=== PATIENT | female | born 1935 | race Caucasian/White ===

== ENCOUNTER 2023-03-10 15:17 | Emergency (ER) | payer MEDICARE, SELFPAY ==
[2023-03-10 15:21] VITALS: BP 112/57
--- NOTE | 2023-03-10 16:47 | ED.GENMED ---
Addendum entered and electronically signed by Jason Luna PA-C 03/13/23 09:22:
Patient's urine culture grew 50,000 CFU of Klebsiella and Streptococcus species. She was not discharged on any antibiotics. Based off chart review it does appear patient symptoms seem to be more related to musculoskeletal etiology however when I
contacted patient she still noted she was having discomfort and did admit to some urinary frequency/urgency. She did have a slight leukocytosis here. Based off her urinalysis I do suspect contamination given greater than 30 squamous cells and few
bacteria, but given her symptoms will trial Augmentin based off her sensitivity panel. Advised to follow-up with primary care physician.
Addendum entered and electronically signed by Gera Almaguer PA-C 03/12/23 07:41:
Not on abx; UCx with polymicrobial growth, await sensitivity
Original Note:
History of Present Illness
General
Chief Complaint: Back Pain
Source: patient
Exam Limitations: none
Time Seen by Provider: 03/10/23 16:07
Travel History
Have you had any contact with someone who has COVID-19?: No
Do you have any symptoms of coronavirus? Fever > 100 degrees, chills, cough, shortness of breath, sore throat, loss of taste or smell, muscle aches, or headache?: No
History of Present Illness
History of Present Illness:
87-year-old female lives by herself at home in an apartment presents complaining of low back pain rating down the right leg. This has been getting worse over the past 2 to 3 weeks. No associated fever. No urinary symptoms. Pain is worse with
standing and motion. She has been using ibuprofen.
Past History
Past History
ED Past Medical History: GERD and HTN
ED Past Surgical History: Other (esophageal)
Social History
Tobacco: Non-smoker
Alcohol: Occasional
Drug: None
Personal:
Living: alone
Employment: Retired
Family History
Family History: Other (n/c)
Phy Exam
Physical Exam
Physical Exam:
General: Well-appearing female no acute respiratory distress
HEENT: Normocephalic atraumatic
Heart: Regular rate and rhythm no murmurs
Lungs: Clear to auscultation bilaterally no wheezing
Musculoskeletal exam: Mild diffuse tenderness about the lumbar spine and right leg
Vascular: 2+ dorsalis pedis pulse right foot
Neurologic: Good station bilateral lower extremities bilateral patellar reflexes 2+
Course
Orders/Labs/Results
Orders:
Orders
03/10/23 15:51
CR Hip - RT w/wo Pel 2-3 Vw* Urgent
Comment:
Reason For Exam: pain, possible injury getting out of bath.
Include a pelvis x-ray?: Yes
CR Lumbar Spine Comp Min 4 Vw* Urgent
Comment:
Reason For Exam: pain, possible injury getting in and out of bath
03/10/23 16:27
Case Management Consult ONCE
Case Management Consult: VN/Home Care
Lidocaine [Lidocaine 4% Patch] 1 patch TOPICAL NOW STA
Prednisone [Deltasone] 50 mg PO NOW STA
03/10/23 16:32
Tramadol HCl [Ultram] 50 mg PO NOW STA
03/10/23 17:15
Basic Metabolic Panel Urgent
Complete Blood Count/With Diff Urgent
Urinalysis Reflex To Culture Urgent
Date Specimen was Collected: 03/10/23
Time Specimen was Collected: 17:01
Urine Microscopic Reflex Cult Urgent
Urine Culture Urgent
SUDHA Source: U
Specimen Description:
Date Specimen was Collected: 03/10/23
Time Specimen was Collected: 17:01
Abnormal Lab Results
03/10/23
17:15
WBC 14.4 H 10^3/uL
(4.8-10.8)
RBC 4.12 L 10^6/uL
(4.20-5.40)
Hct 36.4 L %
(37.0-47.0)
RDW 14.6 H %
(11.5-14.5)
Plt Count 407 H 10^3/uL
(130-400)
MPV 11.5 H fL
(7.4-10.4)
Abs Immat Gran (auto) 0.1 H 10^3/uL
(0-0.05)
Absolute Neuts (auto) 10.1 H 10^3/uL
(1.4-6.5)
Absolute Monos (auto) 1.1 H 10^3/uL
(0.1-0.6)
Immature Gran % 0.7 H %
(0-0.5)
Lymphocytes % 19.3 L %
(20.5-51.1)
Carbon Dioxide 21 L mmol/L
(22-30)
BUN 28 H mg/dl
(7-17)
Creatinine 1.1 H mg/dL
(0.6-1.0)
Glucose 122 H mg/dl
(70-99)
Urine Bilirubin 1+ A
(Negative)
Leukocyte Esterase Rfl 1+ A
(Negative)
Urine WBC (Reflex) 16-20 A /HPF
(0-5)
Urine Bacteria (Reflex) Few A
(Negative)
03/10/23 17:15
03/10/23 17:15
Vital Signs
Initial and Last Documented VS:
Initial Vital Signs
Temp Pulse Resp BP Pulse Ox
98.2 F 78 18 112/57 95
03/10/23 15:21 03/10/23 15:21 03/10/23 15:21 03/10/23 15:21 03/10/23 15:21
Last Documented Vital Signs
Temp Pulse Resp BP Pulse Ox
98.2 F 78 18 112/57 95
03/10/23 15:21 03/10/23 15:21 03/10/23 15:21 03/10/23 15:21 03/10/23 15:21
MDM/Problems Addressed
Differential Diagnosis Includes:
Low back pain with right leg pain. Likely radiculopathy. Patient does live by herself and is having trouble functioning. Case management consulted for visiting nurses and home health. I spoke with the patient's daughter on the telephone who was
concerned about potential UTI secondary to incontinence and increased urination recently. Urinalysis obtained will check labs. X-rays of the lumbar spine and right which show degenerative changes throughout but no other acute finding. Patient
strongly expresses her desire to be discharged back to her apartment
*Critical Care Note
Total Time (30-74mins, 75-104mins- exclusive of procedures): Not Applicable
ED Attending Note
-
Portions of this chart may have been created with voice recognition software.� Occasional wrong word or��sound alike� substitutions may have occurred due to the inherent limitations of voice recognition software.
Discharge Plan
Departure
Patient Disposition: Home (Routine Discharge)
Date of Disposition: 03/10/23
Time of Disposition: 18:06
Patient with high blood pressure during this ER visit?: No
Discharge Problem:
Acute lumbar radiculopathy
Instructions: Radiculopathy (DC)
Prescriptions:
New
lidocaine [Lidoderm] 5 % adhesive patch,medicated
1 patch topical DAILY Qty: 15 0RF
diazepam [Valium] 5 mg tablet
5 mg PO Q8H PRN (Reason: muscle spasm) Qty: 10 0RF
prednisone 20 mg tablet
40 mg PO DAILY 5 Days Qty: 10 0RF
No Action
losartan 50 MG tablet
100 mg PO DAILY
metformin 500 MG tablet
500 mg PO TID@0800,1200,1800
Patient Comments:
11/26/20 - pt stated she now takes tid
atorvastatin 20 MG tablet
20 mg PO DAILY
loperamide 2 MG capsule
2 mg PO Q4HPRN PRN (Reason: diarrhea)
glipizide 5 MG tablet
5 mg PO DAILY
dexlansoprazole [Kapidex] 60 MG capsule,biphase delayed releas
60 mg PO DAILY
mirabegron [Myrbetriq] 25 MG tablet extended release 24 hr
50 mg PO DAILY
diazepam 2 MG tablet
2 mg PO BIDPRN PRN (Reason: anxiety) 0RF
cholestyramine-aspartame [Cholestyramine Light] 1 PACKET powder in packet
1 packet PO BID Qty: 60 0RF
Referrals:
Alejandro Aguilar, [Non-Admitting Privileges] -
Momo Jama MD [Family Provider] -
Activity Restrictions/Additional Instructions:
Take steroids as directed. Use muscle relaxer as needed for spasm. Use lidocaine patches as directed. Please follow-up with orthopedics for further evaluation
Interventions
Interventions:
*Risk Screen - Suicide Last Done: 03/10/23 15:21
*General Assessment Last Done: 03/10/23 15:21
*Neglect/Abuse Screening Last Done: 03/10/23 15:21
ED- Fall Risk Assessment Last Done: 03/10/23 17:14
ED-Musculoskeletal Assessment Last Done: 03/10/23 17:13
--- NOTE | 2023-03-10 16:53 | CM ---
CM was consulted for discharge planning. CM met with patient. She lives in a single floor apartment with elevator access. Patient is agreeable to home discharge with [facility]. Referral sent via [facility].
[2023-03-10 17:14] VITALS: BMI 31.3
[2023-03-10] MEDS: DELTASONE 50 MG PO (17:22)
[2023-03-10] MEDS: LIDOCAINE 4% PATCH 1 PATCH TOPICAL (17:22)
[2023-03-10 17:30] LABS: Urine Albumin Trace (Neg - Trace); Urine Bilirubin 1+ (Negative); Urine Character Clear (Clear); Urine Color Yellow; Urine Glucose Negative (Negative); Urine Ketone Negative (Negative); Urine Leukocyte 1+ (Negative); Urine Nitrite Negative (Negative); Urine Occult Blood Negative (Negative); Urine Specific Gravity 1.025 (<1.030); Urine Urobilinogen Negative (Neg - 1+)
[2023-03-10 17:40] LABS: Urine Bacteria Few (Negative); Urine Red Blood Cell None Seen /HPF (0-2); Urine Squamous Cell >30 /LPF (Few); Urine White Cell 16-20 /HPF (0-5)
[2023-03-10 17:43] LABS: % Basophils 0.5 % (0-2); % Eosinophils 1.2 % (0-6); % Immature Granulocytes 0.7 % (0-0.5); % Lymphocytes 19.3 % (20.5-51.1); % Monocytes 7.9 % (1.7-9.3); % Neutrophils 70.4 % (42.2-75.2); Absolute Basophils 0.1 10^3/uL (0-0.2); Absolute Eosinophils 0.2 10^3/uL (0-0.7); Absolute Immature Granulocytes 0.1 10^3/uL (0-0.05); Absolute Lymphocytes 2.8 10^3/uL (1.2-3.4); Absolute Monocytes 1.1 10^3/uL (0.1-0.6); Absolute Neutrophils 10.1 10^3/uL (1.4-6.5); Hematocrit 36.4 % (37.0-47.0); Mean Corpuscular Hgb 29.1 pg (27.0-31.0); Mean Corpuscular Volume 88.3 fL (81.0-99.0); Mean Platelet Volume 11.5 fL (7.4-10.4); Nucleated Red Blood Cells % 0 %; Platelet Count 407 10^3/uL (130-400); Red Blood Cell Count 4.12 10^6/uL (4.20-5.40); Red Cell Dist. Width 14.6 % (11.5-14.5); White Blood Cell Count 14.4 10^3/uL (4.8-10.8)
[2023-03-10 17:46] LABS: Blood Urea Nitrogen 28 mg/dl (7-17); Calcium 9.2 mg/dl (8.4-10.2); Carbon Dioxide 21 mmol/L (22-30); Chloride 107 mmol/L (98-107); Estimated Creatinine Clearance 39 ml/min; Glucose 122 mg/dl (70-99); Sodium 139 mmol/L (135-145); eGFR 48.94
[2023-03-10 18:30] VITALS: BP 110/61
[2023-03-10 18:38] LABS: Potassium 5.2 mmol/L (3.5-5.1)
[2023-03-10 18:57] VITALS: BP 110/61
[2023-03-10] MEDS: MOTRIN 400 MG PO (20:48)
[2023-03-10] MEDS: TORADOL 15 MG IM (21:33)
[2023-03-10] MEDS: FLEXERIL 10 MG PO (21:34)
== END 2023-03-10 21:44 | disposition home or self-care (01) ==
LOC: EMR 15:17
PROVIDERS: Physician Assistant; EMERGENCY PHYSICIAN Emergency Medicine; FAMILY PHYSICIAN Family Medicine
DX: M54.16 Radiculopathy, lumbar region (principal)
CPT/HCPCS: 99284; 96372; 72110; 73502; 80048; 81003; 81015; 84132; 85025; 87077; 87086; 87186

== ENCOUNTER 2023-03-31 23:53 | Inpatient (IN) | payer MEDICARE, SELFPAY ==
[2023-03-31 18:25] VITALS: BMI 32.0
[2023-03-31 18:29] VITALS: BP 99/50
[2023-03-31 18:55] LABS: % Basophils 0.6 % (0-2); % Eosinophils 1.5 % (0-6); % Immature Granulocytes 0.5 % (0-0.5); % Lymphocytes 14.1 % (20.5-51.1); % Monocytes 6.7 % (1.7-9.3); % Neutrophils 76.6 % (42.2-75.2); Absolute Basophils 0.1 10^3/uL (0-0.2); Absolute Eosinophils 0.2 10^3/uL (0-0.7); Absolute Immature Granulocytes 0.1 10^3/uL (0-0.05); Absolute Lymphocytes 1.7 10^3/uL (1.2-3.4); Absolute Monocytes 0.8 10^3/uL (0.1-0.6); Absolute Neutrophils 9.3 10^3/uL (1.4-6.5); Hematocrit 34.1 % (37.0-47.0); Mean Corp Hgb Conc. 32.3 g/dL (33.0-37.0); Mean Corpuscular Hgb 28.9 pg (27.0-31.0); Mean Corpuscular Volume 89.7 fL (81.0-99.0); Mean Platelet Volume 11.3 fL (7.4-10.4); Nucleated Red Blood Cells % 0 %; Platelet Count 333 10^3/uL (130-400); Red Cell Dist. Width 15.3 % (11.5-14.5); White Blood Cell Count 12.1 10^3/uL (4.8-10.8)
[2023-03-31 19:10] LABS: ALT (SGPT) 17 U/L (0-35); AST (SGOT) 27 U/L (14-36); Albumin 3.9 g/dl (3.5-5.0); Alkaline Phosphatase 112 U/L (38-126); Blood Urea Nitrogen 22 mg/dl (7-17); Carbon Dioxide 20 mmol/L (22-30); Chloride 105 mmol/L (98-107); Glucose 143 mg/dl (70-99); Potassium 5.4 mmol/L (3.5-5.1); Sodium 134 mmol/L (135-145); Total Bilirubin 0.4 mg/dl (0.2-1.3); Total Protein 6.1 g/dl (6.3-8.2); eGFR 54.53
[2023-03-31 21:24] VITALS: BP 108/63
[2023-03-31 21:26] VITALS: BP 108/63
[2023-03-31] MEDS: ZOFRAN ODT (ORALLY DISINTEGRATING) 4 MG PO (21:53)
[2023-03-31] MEDS: DECADRON 6 MG IV (21:53)
[2023-03-31] MEDS: NSS 1000 IV (21:54)
[2023-03-31] MEDS: TORADOL 15 MG IV (21:54)
[2023-03-31 22:30] LABS: Magnesium 1.1 mg/dl (1.6-2.3)
--- NOTE | 2023-03-31 22:41 | PHANOTE ---
Med Rec Note:
While interviewing this pt, pt admitted to this tech that she is 'unsure if she has been taking too many of my meds', 'that i've been in so much pain and reach over take them'. Pt was able to confirm some of her medications, but unsure of others.
Home med list compiled from Dr Ceja and SUSANNE as well.
[2023-03-31 22:45] VITALS: BP 95/46
[2023-03-31 23:10] LABS: Urine Albumin Trace (Neg - Trace); Urine Bilirubin 1+ (Negative); Urine Character Clear (Clear); Urine Color Yellow; Urine Glucose Negative (Negative); Urine Ketone Negative (Negative); Urine Leukocyte Trace (Negative); Urine Nitrite Negative (Negative); Urine Occult Blood Negative (Negative); Urine Specific Gravity 1.025 (<1.030); Urine Urobilinogen Negative (Neg - 1+)
[2023-03-31 23:18] LABS: Urine Squamous Cell >30 /LPF (Few)
--- NOTE | 2023-03-31 23:18 | ED.GENMED ---
History of Present Illness
General
Chief Complaint: Musculo-Skeletal Complaint
Source: patient and family
Exam Limitations: none
Time Seen by Provider: 03/31/23 20:59
Nursing documentation reviewed up to this point in time: agreed with
Travel History
Have you had any contact with someone who has COVID-19?: No
Do you have any symptoms of coronavirus? Fever > 100 degrees, chills, cough, shortness of breath, sore throat, loss of taste or smell, muscle aches, or headache?: No
History of Present Illness
History of Present Illness:
Patient presents to ED secondary to worsening right lower back pain over the past 2 months. Patient was evaluated in ED 1 month ago and was diagnosed with likely arthritis. In addition, patient was also found to have UTI, for which she was given
antibiotics. Unfortunate over the past 2 weeks, patient has had continual diarrhea with decreased appetite. In addition today, patient has had multiple vomiting episodes. Denies fever or chills. Denies abdominal pain. Denies dizziness, but
reports generalized weakness. Denies loss of sensation or weakness. Denies urinary or bowel incontinence.
Past History
Past History
ED Past Medical History: GERD and HTN
ED Past Surgical History: Other (esophageal)
Social History
Tobacco: Non-smoker
Alcohol: Occasional
Drug: None
Personal:
Living: alone
Employment: Retired
Family History
Family History: Other (n/c)
Review of Systems
Review of Systems
Allergies reviewed?: Yes
All Other Systems: ROS reviewed and negative except as documented in HPI and ROS
Constitutional: Reports no symptoms
EENT: Reports no symptoms
Respiratory: Reports no symptoms
Cardiac: Reports no symptoms
ABD/GI: Reports nausea, vomiting and diarrhea
: Reports frequency
Musculoskeletal: Reports back pain
Skin: Reports no symptoms
Neurological: Reports weakness; Denies dizzy
Phy Exam
Physical Exam
Physical Exam:
Physical Exam
General: mild painful distress, not acutely ill. afebrile
Head: nc/at. eomi
Neck: supple. no meningeal signs.
Heart: s1/s2 regular rate and rhythm, no murmur. equal radial pulses.
Lungs: no acute respiratory distress. clear bilaterally
Abdomen: normal bowel sounds. not tender.
Back: mild right lower tenderness to palpation, at level of L5-S1, without midline tenderness. positive right leg straight raise test.
Neuro: alert and oriented. no focal neurological deficits
Skin: no rash
Psychiatric: well kept. interactive and cooperative
Extremities: no edema. no calf tenderness.
Course
Orders/Labs/Results
Orders:
Orders
03/31/23 18:44
CMP [Comprehensive Metabolic Panel] Urgent
Complete Blood Count/With Diff Urgent
Magnesium Urgent
Comment: ADD ON
03/31/23 21:33
Add On- LAB Urgent
Tests Added?: magnesium
STOOL [C difficile Antigen & Toxins] Urgent
SUDHA Source: Feces/Stool
Specimen Description:
Stool Culture Urgent
SUDHA Source: Feces/Stool
Specimen Description:
03/31/23 21:38
0.9% Sodium Chloride 1000 ml [Nss] 1,000 ml IV BOLUS
Dexamethasone Sod Phosphate [Decadron] 6 mg IV NOW STA
Ketorolac [Toradol] 15 mg IV NOW STA
Ondansetron Orally Disint [Zofran Odt (Orally Disintegrating)] 4 mg PO NOW STA
03/31/23 23:02
Urinalysis Reflex To Culture Urgent
Date Specimen was Collected: 03/31/23
Time Specimen was Collected: 22:55
Urine Microscopic Reflex Cult Urgent
Abnormal Lab Results
03/31/23 03/31/23
18:44 23:02
WBC 12.1 H 10^3/uL
(4.8-10.8)
RBC 3.80 L 10^6/uL
(4.20-5.40)
Hgb 11.0 L g/dL
(12.0-16.0)
Hct 34.1 L %
(37.0-47.0)
MCHC 32.3 L g/dL
(33.0-37.0)
RDW 15.3 H %
(11.5-14.5)
MPV 11.3 H fL
(7.4-10.4)
Abs Immat Gran (auto) 0.1 H 10^3/uL
(0-0.05)
Absolute Neuts (auto) 9.3 H 10^3/uL
(1.4-6.5)
Absolute Monos (auto) 0.8 H 10^3/uL
(0.1-0.6)
Neutrophils % 76.6 H %
(42.2-75.2)
Lymphocytes % 14.1 L %
(20.5-51.1)
Sodium 134 L mmol/L
(135-145)
Potassium 5.4 H mmol/L
(3.5-5.1)
Carbon Dioxide 20 L mmol/L
(22-30)
BUN 22 H mg/dl
(7-17)
Glucose 143 H mg/dl
(70-99)
Magnesium 1.1 L mg/dl
(1.6-2.3)
Total Protein 6.1 L g/dl
(6.3-8.2)
Urine Bilirubin 1+ A
(Negative)
Leukocyte Esterase Rfl Trace A
(Negative)
03/31/23 18:44
03/31/23 18:44
Vital Signs
Initial and Last Documented VS:
Initial Vital Signs
Temp Pulse Resp BP Pulse Ox
98.3 F 103 20 99/50 97
03/31/23 18:29 03/31/23 18:29 03/31/23 18:29 03/31/23 18:29 03/31/23 18:29
Last Documented Vital Signs
Temp Pulse Resp BP Pulse Ox
97.7 F 83 16 103/57 96
04/01/23 02:05 04/01/23 02:05 04/01/23 02:05 04/01/23 02:05 04/01/23 02:05
MDM/Problems Addressed
MDM/Problems Addressed:
Patient with continual, persistent intractable right lower back pain, despite treatment. In addition, patient experiencing ongoing diarrhea with vomiting, concerning for potential C. difficile colitis, as she recently finished antibiotics for UTI.
As such, patient will be admitted for pain control and continual hydration, with stool pending.
*Critical Care Note
Total Time (30-74mins, 75-104mins- exclusive of procedures): Not Applicable
ED Attending Note
-
Portions of this chart may have been created with voice recognition software.� Occasional wrong word or��sound alike� substitutions may have occurred due to the inherent limitations of voice recognition software.
Discharge Plan
Departure
Patient Disposition: Admit
Date of Disposition: 03/31/23
Time of Disposition: 23:23
Presentation/result/management discussed w/ accepting MD/DO: Hospitalist
Condition: Fair
Discharge Problem:
Intractable low back pain, Diarrhea, Dehydration
Interventions
Interventions:
*Risk Screen - Suicide Last Done: 03/31/23 18:29
*General Assessment Last Done: 03/31/23 18:29
*Neglect/Abuse Screening Last Done: 03/31/23 18:29
ED- Fall Risk Assessment Last Done: 03/31/23 21:22
*ED COVID-19 Vaccine History Last Done: 03/31/23 21:11
*Nursing Disposition Last Done: 04/01/23 01:36
ED-Musculoskeletal Assessment Last Done: 03/31/23 21:21
Discharge Date and Time
Discharge Date/Time: 04/01/23 01:37
[2023-03-31 23:19] LABS: Urine Granular Cast 0-2 /LPF (0); Urine Red Blood Cell None Seen /HPF (0-2)
--- NOTE | 2023-03-31 23:47 | HPS.HSE ---
Addendum entered and electronically signed by Ulises Bautista MD 04/01/23 00:21:
GI consult for AM
Original Note:
Family Physician
-
Family Physician: NOT KNOW UNKNOWN - PT DOES
Chief Complaint
-
severe back pain and diarrhea for 2 months
History of Present Illness
88F poor historian HX Rt lower back pain for 2months , pw worse back pain today and felt like sharp shooting today. Denied radiation to Legs. Denied paraesthesia or weakness, However it affects her ambulatory function less mobile. She use walker.
Recently on ABx for UTI pw persistent diarrhea for last 2months and multiple emesis today.
No abdominal pain. No fever
Reports vomiting exacerbate worsening Rt lower back pain
Patient was seen ED 1 month ago and was diagnosed with likely arthritis.
Medical History
Past Medical History
Past Medical History: Reports Other
Additional Past Medical History:
GERD
Esophageal stricture with esophageal dilatation histor
IBS
HTN
Hypercholesterolemia
NIDDM
Anxiety
Urinary stress incontinence
Past Surgical History: Reports Other
Additional Past Surgical History:
Appendectomy
Right hip replacement
right knee surgery
Left breast tumor removal benign
Pilonidal cyst removal
Esophageal dilatation x2,
colonoscopy/sigmoidoscopy x3 in the past 2 years
Social History
Tobacco: Non-smoker
Personal:
Living: Alone
Employment: Retired
Family History
Family History: Not pertinent
Allergies / Home Medications
Allergies reflects when Allergies were last updated in [email or web address].
Home Medications with original date entered in [email or web address]
Allergy/Medication List:
Allergies
Allergy/AdvReac Type Severity Reaction Status Date / Time
acetaminophen [From Tylenol] Allergy Unknown Verified 03/31/23 18:29
cortisone Allergy Unknown Verified 03/31/23 18:29
Home Medications
glipizide 5 mg tablet 5 mg PO DAILY Diabetes 11/26/20
losartan 50 mg tablet 50 mg PO DAILY Blood pressure 11/26/20
diazepam 2 mg tablet 2 mg PO BIDPRN PRN anxiety 12/13/20
acetaminophen 500 mg tablet 500 - 1,000 mg PO Q6H PRN mild pain 03/31/23
atorvastatin 40 mg tablet 40 mg PO HS 03/31/23
famotidine 20 mg tablet 20 mg PO HS PRN heartburn 03/31/23
ibuprofen 200 mg capsule 400 mg PO Q6H PRN mild pain 03/31/23
metformin 500 mg tablet,extended release 24 hr 500 mg PO BID 03/31/23
omeprazole 40 mg capsule,delayed release 40 mg PO DAILY 03/31/23
Review of Systems
-
Constitutional: Reports No Symptoms
EENT: Reports No Symptoms
Respiratory: Reports No Symptoms
Cardiac: Reports No Symptoms
Abdomen/GI: Reports See HPI and Diarrhea
: Reports No Symptoms
Musculoskeletal: Reports See HPI and Other (LBP )
Skin: Reports No Symptoms
Neurological: Reports No Symptoms
Endocrine: Reports No Symptoms
Hematologic/Lymphatic: Reports No Symptoms
Psych: Reports No Symptoms
Physical Exam
Vital Signs
Vital Signs
Temp Pulse Resp BP Pulse Ox
98.3 F 84 18 95/46 95
03/31/23 18:29 03/31/23 21:26 03/31/23 21:26 03/31/23 22:45 03/31/23 21:43
Physical Exam
General: Well Developed, Well Nourished, No Apparent Distress, Comfortable (when lying flat, able to turn herself to Lt and rt lateral position) and Other (see below )
HEENT: NormoCephalic, Anicteric and Moist mucous membranes
Respiratory: Clear; No Wheezes, Rales or Rhonchi
Cardiac: S1/S2 and Regular Rhythm
Breast: Deferred by me
GI: Soft, Non Tender, Non Distended and Normal Bowel Sounds
Rectal: Deferred by Provider
Genito-urinary: Deferred by me
Musculoskeletal: No Edema and Other (normal strength in both Mitra )
Skin: Warm
Neuro: AO x 3, Nonfocal/grossly intact and No Sensory Deficits
Hematologic/Lymphatic: No Lymphadenopathy
Psych: Calm
Laboratory Results
-
03/31/23 18:44
03/31/23 18:44
Laboratory Results
Total Bilirubin 0.4 mg/dl (0.2-1.3) 03/31/23 18:44
AST 27 U/L (14-36) 03/31/23 18:44
ALT 17 U/L (0-35) 03/31/23 18:44
Alkaline Phosphatase 112 U/L (38-126) 03/31/23 18:44
Data Reviewed
-
Lab Data: Labs Reviewed by me
Old Records: Reviewed
Impression/Plan
-
Reviewed VS: unremarkable VS
Data
WCC 12.1
Hgb 11
Na 134
K 5.4
CO2 20
BUN 22
Cr 1.0 eGFR 54
nl AST and nl ALT
Unremarkable UA
Last hospitalist admission: 12/10/20 - 12/13/20
P Dx:
1. Intractable diarrhea.
Secondary Dxs;
1. Hyponatremia.
2. Hypertension.
3. GERD
4. Diabetes.
5. Hyperlipidemia.
6. Anxiety.
7. Urinary stress incontinence.
ASSESSMENT & PLAN
Persistent diarrhea - DDX: KULDEEP vs. CDAD
Recent ABx for UTI - current UA is unremarkable
HX IBS
HX intractable dirreha of unclear origin
- stool for C Diff
- stool Cx
- IVF
- Held empiric ABx for now
- Held PPI
- GI consult
Intractable subacute Rt LBP flare likely due to repeated vomiting
Denies loss of sensation or weakness. Denies urinary or bowel incontinence.
Clinically no radicular sxs
- Analgesia PRN
- will hold of further steroids for now
- PT/OT
- Lx spine MRI due to Intractable subacute back pain
Relative hypotension
Essential HTN
- held Losartan
- IVF and observe BP
DM2
- add ISS
- held metformin and Glipizide
GERD/Esophageal stricture HX
HX esophageal dilatation x 2
HLD
- held Lipitor
Anxiety Hx
cont [employer] Valium prn
Urinary stress incontinence
- on [employer] Myrbetriq
DVT Px: SCD
Code: Full
IP MS
[2023-04-01 01:35] VITALS: BP 104/61
[2023-04-01 02:05] VITALS: BP 103/57; BMI 31.0
[2023-04-01] MEDS: NSS 1000 IV ×2 (02:30→12:10)
[2023-04-01 06:00] VITALS: BMI 31.0
[2023-04-01 06:15] LABS: Hematocrit 33.6 % (37.0-47.0); Hemoglobin 10.9 g/dL (12.0-16.0); Mean Corp Hgb Conc. 32.4 g/dL (33.0-37.0); Mean Corpuscular Volume 89.4 fL (81.0-99.0); Mean Platelet Volume 11.1 fL (7.4-10.4); Platelet Count 297 10^3/uL (130-400); Red Blood Cell Count 3.76 10^6/uL (4.20-5.40); Red Cell Dist. Width 15.3 % (11.5-14.5); White Blood Cell Count 14.1 10^3/uL (4.8-10.8)
[2023-04-01 06:45] LABS: Blood Urea Nitrogen 28 mg/dl (7-17); Calcium 8.5 mg/dl (8.4-10.2); Carbon Dioxide 22 mmol/L (22-30); Chloride 106 mmol/L (98-107); Estimated Creatinine Clearance 46 ml/min; Glucose 225 mg/dl (70-99); Potassium 5.7 mmol/L (3.5-5.1); Sodium 135 mmol/L (135-145); eGFR > 60.00
[2023-04-01 07:00] VITALS: BP 106/46
[2023-04-01 08:52] LABS: Glucose - Point of Care 213 mg/dl (70-99)
[2023-04-01] MEDS: NOVOLOG FLEXPEN-LOW RESISTANCE 2 UNITS SC (09:05)
[2023-04-01 09:34] LABS: Glycohemoglobin (HgbA1c) 8.2 % (4.0-5.6)
--- NOTE | 2023-04-01 10:23 | W.PN.HOSP.TC ---
Today's Communication/Plan
-
see plan above
Assessment / Plan
Assessment / Plan
Subacute right lower back pain which got worse-her presenting complaint-she has some sciatica to the right side posteriorly in the thigh about the knee. There is no foot weakness. SLR seems to be positive. Worried about disc disease. Plain x-ray
shows no fracture in the lumbar vertebra. MRI of the spine pending. Hold NSAIDs because of concern about nausea vomiting and black stools. Continue Tylenol and use tramadol as needed.
Chronic to subacute diarrhea-patient was here couple of years ago had a colonoscopy and endoscopy. Last known pathology of the colonic biopsy shows elevated eosinophils but not sure if its meets criteria for eosinophilic colitis. Check stools for
blood because of subjective complaint of black stools. Await GI input.
Leukocytosis-patient currently with back pain and GI symptoms. Afebrile. UA nondiagnostic. No respiratory or symptoms. She does have mild tenderness in the left lower quadrant. She also had a nausea and multiple episodes of vomiting
yesterday. Check a CT of the abdomen pelvis for further evaluation.
Black stools-subjective symptoms. Check stools for blood. Patient has been using NSAIDs for back pain. Hemoglobin lower than baseline. Continue to follow.
Hyperkalemia-current in the recent past as well-patient on losartan which and when to hold. May not be a candidate for losartan. Consider an alternative. Currently blood pressure under goal.
Diabetes mellitus type 2-hold metformin-continue with glipizide and sliding scale insulin.
Full code
Anticipated Discharge: 24 - 48 hours
Subjective/Interval History
-
Date of Service: April 01, 2023
This morning no further nausea or vomiting.
Denies any abdominal pain. Ongoing diarrhea for the last couple of months. Formed to soft stools but 4-5 a day. Lately she has needed to be dark which concerned her. She has been using NSAIDs for back pain
Right lower back pain which radiates to buttock and also to the posterior thigh above the knee sometimes. Worse with movement. Better with lying to the left. No weakness.
Objective Data
-
Labs:
Laboratory Results
04/01/23
05:26
WBC 14.1 H
Hgb 10.9 L
Hct 33.6 L
Plt Count 297
Sodium 135
Potassium 5.7 H
Chloride 106
Carbon Dioxide 22
BUN 28 H
Creatinine 0.9
Glucose 225 H
Calcium 8.5
Vital Signs:
Vital Signs
Temp Pulse Resp BP Pulse Ox
97.6 F 83 12 106/46 97
04/01/23 07:00 04/01/23 07:00 04/01/23 07:00 04/01/23 07:00 04/01/23 07:00
I&O
03/31/23 04/01/23 04/02/23
06:59 06:59 06:59
Intake Total 740 / 740
Balance 740 / 740
Review of Systems
-
Constitutional: Denies Fever
EENT: Denies Sore Throat
Respiratory: Denies Cough or Trouble Breathing
Cardiac: Denies Chest Pain
Neuro: Denies Dizzy
Physical Exam
-
General: No Apparent Distress
HEENT: Moist Mucous Membranes
Respiratory: Clear to Auscultation
Cardiac: Regular Rhythm and S1/S2
GI: Soft, Nondistended, Normal Bowel Sounds and Tender (? Discomfort in LLQ)
Musculoskeletal: Other (SLR positive on right leg at 45 degrees - pain in R posterior thigh )
Neuro: AO x 3 and No Motor Deficits
Psych: Calm
Data Reviewed
-
Labs: Labs Reviewed by me
--- NOTE | 2023-04-01 10:31 | CON.GI ---
Addendum entered and electronically signed by Keyanna Morgan Do, MD 04/01/23 13:16:
I saw and examined the patient.
The PATIENT DAY COORDINATOR's note was reviewed and I agree with the note.
Comment: Evelina is an 88yo W with h/o DM and HL who was admitted for worsening back pain. She states 2 months ago she had back pain that was severe 10/10 of unclear cause. She had limited mobility. She at baseline urinary and now fecal leakage
requiring wearing of a pad. She was on Augmentin recently for UTI and stools have been loose. She uses lomotil yesterday and had N/V. Exam VSS AF, obese lower quadrant TTP. obese. Labs reviewed WBC of 14 Hbg 10.9. AXR non obstructive bowel
gas pattern. EGD/colon by me 2020 neg for celiac, microscopic colitis or EoE.
Impression
- Diarrhea acute on chronic
Given recent abx use consider Cdiff
She also has pelvic floor dysfunction and now immobility due to back pain
- Urinary leakage
- Back pain with immobility x2 mo
- UTI with recent abx use
- HL
- DM
- GERD
Recommendations
- Stool studies
- Await results of CTAP and MRI spine
- Diet advancement pending above
- Advise her to avoid lomotil in future
- C/w PPI
- Agree with SNF placement per PT and case management
Will follow with you
Original Note:
Consultation
-
Date/Time Consultation Requested: 04/01/238
Date/Time Consultation Performed: 04/01/23 1015
Requesting Provider: Dr. Bautista
Performing Provider: Dr. Bailey/DEMARIO Mix
Reason for Consultation: diarrhea
Medical History
Chief Complaint / HPI
Chief Complaint: right sided back pain
History of Present Illness:
88yo presents with hx of GERD, right sided back pain for 2 months, UTI recently treated with Augmentin, chronic diarrhea, worked up in the past and was negative and intermittent dysphagia with prior dilatation without any current complaints of such
comes to the ER with worsening right sided back pain. She also states that she had multiple episodes of vomiting yesterday(7 times) followed by diarrhea. The patient states that she has been having solid stools as well as 'mushy' stools in between
for the past 2 months up until yesterday when she puentes multiple episodes. She has not had any episodes of diarrhea since arrival and no specimens have bee obtained since she has not gone. She states that last night she had the best sleep in 2 months.
Currently she denies any F, C, N, V, abdominal pain, melena, hemaotchezia, dysphagia or odynophagia. �
Past Medical History
Past Medical History: GERD, Hypercholesterolemia, NIDDM and Other (UTI, anxiety, esophageal stricture)
Past Surgical History: Appendectomy and Other (Orthopedic (right hip replacement, right knee replacement))
Social History
Tobacco: Non-Smoker
Alcohol: None
Drug: None
Personal:
Living: With Family
Employment: Retired
Family History
Family History: Other (No fam Hx GI malignancy or IBD)
Allergies / Home Medications
Allergy/AdvReac Type Severity Reaction Status Date / Time
acetaminophen [From Tylenol] Allergy Unknown Verified 04/01/23 02:04
cortisone Allergy Unknown Verified 03/31/23 18:29
Medication Instructions Recorded
glipizide 5 mg tablet 5 mg PO DAILY Diabetes 11/26/20
losartan 50 mg tablet 50 mg PO DAILY Blood pressure 11/26/20
diazepam 2 mg tablet 2 mg PO BIDPRN PRN anxiety 12/13/20
acetaminophen 500 mg tablet 500 - 1,000 mg PO Q6H PRN mild pain 03/31/23
atorvastatin 40 mg tablet 40 mg PO HS 03/31/23
famotidine 20 mg tablet 20 mg PO HS PRN heartburn 03/31/23
ibuprofen 200 mg capsule 400 mg PO Q6H PRN mild pain 03/31/23
metformin 500 mg tablet,extended 500 mg PO BID 03/31/23
release 24 hr
omeprazole 40 mg capsule,delayed 40 mg PO DAILY 03/31/23
release
Review of Systems
-
All other systems: A 12 pt ROS was Negative except as stated above in HPI
Vital Signs
Temp Pulse Resp BP Pulse Ox
97.6 F 83 12 106/46 97
04/01/23 07:00 04/01/23 07:00 04/01/23 07:00 04/01/23 07:00 04/01/23 07:00
Physical Exam
Exam
General: No Apparent Distress
HEENT: Normocephalic
Respiratory: Clear (anterior)
Cardiac: Regular Rhythm
GI: Soft, Non Tender, Non Distended and Normal Bowel Sounds
Musculoskeletal: No Edema
Skin: Warm and Dry
Neuro: AO x 3
Psych: Calm
Results
WBC 14.1 10^3/uL (4.8-10.8) H 04/01/23 05:26
Hgb 10.9 g/dL (12.0-16.0) L 04/01/23 05:26
Hct 33.6 % (37.0-47.0) L 04/01/23 05:26
MCV 89.4 fL (81.0-99.0) 04/01/23 05:26
Plt Count 297 10^3/uL (130-400) 04/01/23 05:26
Absolute Neuts (auto) 9.3 10^3/uL (1.4-6.5) H 03/31/23 18:44
Sodium 135 mmol/L (135-145) 04/01/23 05:26
Potassium 5.7 mmol/L (3.5-5.1) H 04/01/23 05:26
Chloride 106 mmol/L (98-107) 04/01/23 05:26
Carbon Dioxide 22 mmol/L (22-30) 04/01/23 05:26
BUN 28 mg/dl (7-17) H 04/01/23 05:26
Creatinine 0.9 mg/dL (0.6-1.0) 04/01/23 05:26
Calcium 8.5 mg/dl (8.4-10.2) 04/01/23 05:26
Total Bilirubin 0.4 mg/dl (0.2-1.3) 03/31/23 18:44
AST 27 U/L (14-36) 03/31/23 18:44
ALT 17 U/L (0-35) 03/31/23 18:44
Alkaline Phosphatase 112 U/L (38-126) 03/31/23 18:44
Diagnostic Image Results:
Prior GI Procedures:
EGD: 12/13/20 (Do) � - White nummular lesions in esophageal mucosa. Cells
�� � � � � � � � � � � for cytology obtained. Random biopsies taken to
�� � � � � � � � � � � evaluate for eosinophilic esophagitis. Negative for eugenia
�� � � � � � � � � � � - Non-obstructing Schatzki ring.
�� � � � � � � � � � � - Erythematous mucosa in the antrum. Biopsied. Neg HPylori
�� � � � � � � � � � � - 2 cm hiatal hernia.
�� � � � � � � � � � � - Normal examined duodenum. Biopsied. negative Celiac.
Colonoscopy: 12/13/20 (Do) - Preparation of the colon was fair. Unable to rule
�� � � � � � � � � � � out small <6mm polyps.
�� � � � � � � � � � � - Non-bleeding internal hemorrhoids.
�� � � � � � � � � � � - Diverticulosis in the sigmoid colon.
�� � � � � � � � � � � - The examination was otherwise normal.
�� � � � � � � � � � � - The examined portion of the ileum was normal.
�� � � � � � � � � � � - Biopsies were taken with a cold forceps from the
�� � � � � � � � � � � entire colon for evaluation of microscopic colitis. Bx: negative for micro colitis.
EGD:� 5 years ago at [place]
Colonoscopy: several colon and sig all normal per pt recall
Assessment / Plan
-
88yo presents with hx of GERD, right sided back pain for 2 months, UTI recently treated with Augmentin, chronic diarrhea, worked up in the past and was negative and intermittent dysphagia with prior dilatation without any current complaints of such
comes to the ER with worsening right sided back pain. She also states that she had multiple episodes of vomiting yesterday(7 times) followed by diarrhea. The patient states that she has been having solid stools as well as 'mushy' stools in between
for the past 2 months up until yesterday when she puentes multiple episodes.
Impression:
Chronic changes in stools (alternating in solid and mushy) since in ability to ambulate
N/V/D x 24 hrs
right back pain-> per IM
Plan:
-Continue with gentle IV hydration
-Continue PPI
-Await stool studies. Consider C Diff as patient just on Augmentin.
-Patient also with leukocytosis, would recommend IM to follow. Could also be viral gastroenteritis as well. However patient did get steroids.
-Trend CBC (WBC, Hgb)
-Check Abd Xray
-Add Florastor
-Continue clear liquid for now.
Data Reviewed
-
Old Records: Reviewed
-
-
Thank you for consultation and allowing me to participate in the patient's care. Please call the online affiliate marketing manager GI physician during the after hours with any questions or concerns.
[2023-04-01 10:53] VITALS: BP 143/75; BP 86/61; PULSE 84
--- NOTE | 2023-04-01 11:34 | CM ---
Received call from daughter, Meryl, this AM who expressed concerns about patient not being able to care for herself anymore. Patient lives in a 1 floor apartment in [place] with 1 step to enter. Patient uses a walker with tennis balls on front
for ambulation. She also has a wheelchair and tub bench. Daughter checked on patient approximately 1 week ago and found feces on floor and on patient and the meals on wheels food was not eaten. Patient's mobility has decreased, she cannot bend her
legs to pick anything off the floor and she has fallen x3 recently. She has no services in the home, no psychiatric hospitalizations. Daughter lives in [place], [place] and is in the process of applying for Medicaid for patient and has an accepting [place]
facility in [place]. Patient has been living with daughter for the past week. Pharmacy is [facility] in [place] and uncertain of PCP, first name is Yudith and she is with [facility]. Daughter will provide at a later date. PT has evaluated and
recommended SNF. Preference is [facility] in [facility]. Daughter wants patient in [place] in the [place] area. Referral will be sent.
[2023-04-01 12:01] LABS: Glucose - Point of Care 284 mg/dl (70-99)
[2023-04-01] MEDS: PROTONIX 40 MG PO (12:06)
[2023-04-01] MEDS: OMNIPAQUE 50 ML PO (12:07)
[2023-04-01] MEDS: NOVOLOG FLEXPEN-LOW RESISTANCE 3 UNITS SC (12:13)
[2023-04-01] MEDS: ULTRAM 50 MG PO (14:45)
[2023-04-01 15:00] VITALS: BP 117/62
[2023-04-01 17:25] LABS: Glucose - Point of Care 175 mg/dl (70-99)
[2023-04-01] MEDS: NOVOLOG FLEXPEN-LOW RESISTANCE 1 UNITS SC (17:40)
[2023-04-01] MEDS: LIPITOR 40 MG PO (21:07)
[2023-04-01 21:43] LABS: Glucose - Point of Care 218 mg/dl (70-99)
[2023-04-01 23:16] VITALS: BP 108/60
[2023-04-02] MEDS: NSS 1000 IV ×2 (00:11→08:52)
[2023-04-02 05:27] VITALS: BMI 30.8
[2023-04-02 06:09] LABS: % Basophils 0.3 % (0-2); % Eosinophils 0.2 % (0-6); % Immature Granulocytes 0.4 % (0-0.5); % Lymphocytes 14.3 % (20.5-51.1); % Monocytes 6.7 % (1.7-9.3); % Neutrophils 78.1 % (42.2-75.2); Absolute Lymphocytes 1.5 10^3/uL (1.2-3.4); Absolute Monocytes 0.7 10^3/uL (0.1-0.6); Absolute Neutrophils 8.4 10^3/uL (1.4-6.5); Hematocrit 32.4 % (37.0-47.0); Hemoglobin 10.5 g/dL (12.0-16.0); Mean Corp Hgb Conc. 32.4 g/dL (33.0-37.0); Mean Corpuscular Hgb 29.4 pg (27.0-31.0); Mean Corpuscular Volume 90.8 fL (81.0-99.0); Mean Platelet Volume 11.6 fL (7.4-10.4); Nucleated Red Blood Cells % 0 %; Platelet Count 304 10^3/uL (130-400); Red Blood Cell Count 3.57 10^6/uL (4.20-5.40); Red Cell Dist. Width 15.2 % (11.5-14.5); White Blood Cell Count 10.7 10^3/uL (4.8-10.8)
[2023-04-02 06:37] LABS: Blood Urea Nitrogen 19 mg/dl (7-17); Calcium 8.4 mg/dl (8.4-10.2); Carbon Dioxide 22 mmol/L (22-30); Chloride 109 mmol/L (98-107); Estimated Creatinine Clearance 58 ml/min; Glucose 156 mg/dl (70-99); Iron 107 ug/dl (37-170); Potassium 4.8 mmol/L (3.5-5.1); Sodium 138 mmol/L (135-145); eGFR > 60.00
[2023-04-02 06:45] LABS: Percent Saturation 41 % (20-50); Total Iron Binding Capacity 257 ug/dl (265-497)
[2023-04-02 07:00] VITALS: BP 120/72
--- NOTE | 2023-04-02 08:35 | W.PN.GI.CBS2 ---
Addendum entered and electronically signed by Raven Cantor DO 04/02/23 13:54:
patient seen and examined independently of [employer] and agree with her note with my additions below:
Evelina is an 88yoF seen previously by our practice, last seen outpatient in May [address] Lawrence. She has known eosinophilic colitis and had been treated with Imodium. In the past she was given a prescription for budesonide. According to
the office notes she was unable to afford the budesonide because of prescription coverage and just continued with Imodium. Patient tells me that she had been doing pretty well but about 2 months ago the same symptoms came back where she was having
multiple soft stools a day. The main reason she came to the hospital with significant right-sided back pain and is being treated for that. On admission she did have an episode of nausea vomiting but she feels was related to the pain and possibly
medication. She has had no further nausea or vomiting. She continues to have soft stools. Patient states that she takes multiple Imodium and sometimes Pepto-Bismol to keep her stools under control.
I reviewed multiple notes including ECW and procedure notes and path reports.
This is possibly an exacerbation of her eosinophilic colitis.
I would start her on budesonide 9 mg once daily and have her follow-up with Dr. Lawrence in the office. The budesonide will be a taper. She would do 9 mg for 2 month, then 6 mg x 2 weeks then 3 mg x 2 weeks.
-- I will discuss the details with her tomorrow.
I spent 50 minutes with the patient, chart and counseling/discussing coordination of care.
Original Note:
Today's Communication / Plan
-
Advance diet
Await pending stool studies
Assessment / Plan
-
88yo presents with hx of GERD, right sided back pain for 2 months, UTI recently treated with Augmentin, chronic diarrhea, worked up in the past and was negative and intermittent dysphagia with prior dilatation without any current complaints of such
comes to the ER with worsening right sided back pain. She also states that she had multiple episodes of vomiting yesterday(7 times) followed by diarrhea. The patient states that she has been having solid stools as well as 'mushy' stools in between
for the past 2 months up until yesterday when she has multiple episodes.
Impression:
Chronic changes in stools (alternating in solid and mushy) since in ability to ambulate
N/V/D x 24 hrs -> resolved
Acute on chronic diarrhea
right back pain-> per IM
Plan:
-Advance diet to [address] ADA/low residue diet
-Continue PPI
-Await other stool studies, Cdiff (negative)
-Continue Florastor
-With pancreatic atrophy with add pancreatic elastase to check for EPI
-Avoid Lomotil in the future
-Pending MRI LS spine
Subjective
Subjective
Date of Service: April 02, 2023
Patient states that she has no further nausea/vomiting or diarrhea. She states that her stools are back to the consistency that they usually are. She had 4 smears over night that are documented green/brown. Stool is negative for CDiff. Awaiting
other stool studies. No abdominal pain. She is tolerating clear liquid diet and would like to advance her diet to solids. CT Abd/Pelvis with moderate stool throughout the colon.
Objective
Data Reviewed
Laboratory Data:
Laboratory Results
04/02/23 05:19
04/02/23 05:19
Laboratory Results
Magnesium 1.1 mg/dl (1.6-2.3) L 03/31/23 18:44
Total Bilirubin 0.4 mg/dl (0.2-1.3) 03/31/23 18:44
AST 27 U/L (14-36) 03/31/23 18:44
ALT 17 U/L (0-35) 03/31/23 18:44
Alkaline Phosphatase 112 U/L (38-126) 03/31/23 18:44
Vital Signs and I&O:
Vital Signs
Temp Pulse Resp BP Pulse Ox
97.6 F 75 18 120/72 100
04/02/23 07:00 04/02/23 07:00 04/02/23 07:00 04/02/23 07:00 04/02/23 07:00
I&O
04/01/23 04/02/23 04/03/23
06:59 06:59 06:59
Intake Total 740 / 740 4260 / 4260
Balance 740 / 740 4260 / 4260
Physical Exam
Physical Exam
HEENT: Anicteric
Cardiology: Normal Sinus Rhythm
Pulmonary: Clear
GI: Soft, Non Distended, Non Tender and Normal Bowel Sounds
Neuro: Non Focal
[2023-04-02] MEDS: NOVOLOG FLEXPEN-LOW RESISTANCE SC ×3 (08:49→16:52)
[2023-04-02 08:50] LABS: Glucose - Point of Care 144 mg/dl (70-99)
[2023-04-02] MEDS: GLUCOTROL 5 MG PO (08:53)
[2023-04-02] MEDS: PROTONIX 40 MG PO (08:53)
[2023-04-02] MEDS: VALIUM 2 MG PO ×2 (08:53→18:44)
[2023-04-02] MEDS: FLORASTOR 250 MG PO (10:22)
[2023-04-02 12:59] LABS: Glucose - Point of Care 140 mg/dl (70-99)
[2023-04-02] MEDS: ENTOCORT EC 9 MG PO (14:27)
[2023-04-02 15:00] VITALS: BP 121/66
--- NOTE | 2023-04-02 15:05 | W.PN.HOSP.TC ---
Today's Communication/Plan
-
CW Pain med and PT tx
Consult IR for epidural injection
Assessment / Plan
Assessment / Plan
Subacute right lower back pain which got worse-her presenting complaint-she has some sciatica to the right side posteriorly in the thigh about the knee. There is no foot weakness. SLR seems to be positive. Worried about disc disease. Plain x-ray
shows no fracture in the lumbar vertebra.
MRI L spine shows-
1. 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
2. � MODERATE-SIZED RIGHT FORAMINAL DISC EXTRUSION at L4/L5 causing severe right neural foraminal narrowing and exiting right L4 nerve root impingement.
3. � Severe right neural foraminal narrowing at L3/L4 with exiting right L3 nerve root impingement caused by severe right-sided facet joint arthrosis. Moderate-sized left central disc herniation at L3/L4.
4. � 8.3 mm grade 2 anterolisthesis of L5 on S1 secondary to very severe bilateral facet joint arthrosis. Mild central canal stenosis and moderate to severe bilateral neural foraminal narrowing with exiting L5 nerve root impingement at L5/S1.
5. 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
6. � Severe diffuse posterior paraspinal muscle atrophy.
.Continue Tylenol and use tramadol as needed. pt says pain recurrs once pain med wears off . She hasnt taken much pain meds.
L spine shows severe disease -will consult IR for role of epidural injection to L4/L5 region for rt L4 nerve root impingement.
CW PT
Chronic to subacute diarrhea-patient was here couple of years ago had a colonoscopy and endoscopy. Last known pathology of the colonic biopsy shows elevated eosinophils but not sure if its meets criteria for eosinophilic colitis. Check stools for
blood because of subjective complaint of black stools. 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
Leukocytosis-patient currently with back pain and GI symptoms. Afebrile. UA nondiagnostic. No respiratory or symptoms. She does have mild tenderness in the left lower quadrant. She also had a nausea and multiple episodes of vomiting
yesterday. CT of the abdomen pelvis shows no acute pathology.Normalized without tx . Follow off of abx for now
Black stools-subjective symptoms. Check stools for blood. Patient has been using NSAIDs for back pain. Hemoglobin lower than baseline but stable. Continue to follow.
Hyperkalemia-current in the recent past as well-patient on losartan which and when to hold. May not be a candidate for losartan. Consider an alternative. Currently blood pressure under goal.
Diabetes mellitus type 2-hold metformin-continue with glipizide and sliding scale insulin.
Full code
DW GI about steroids for colitis
Anticipated Discharge: 24 - 48 hours
Subjective/Interval History
-
Date of Service: April 02, 2023
Still with intractable rt low back pain radiating down to rt buttock and thigh area
Pain returns back once med wears off
Participated with PT -recommending SNF
' Do something for this pain Dr Pryor'
I want to go home once better
Objective Data
-
Labs:
Laboratory Results
04/02/23
05:19
WBC 10.7
Hgb 10.5 L
Hct 32.4 L
Plt Count 304
Sodium 138
Potassium 4.8
Chloride 109 H
Carbon Dioxide 22
BUN 19 H
Creatinine 0.7
Glucose 156 H
Calcium 8.4
Vital Signs:
Vital Signs
Temp Pulse Resp BP Pulse Ox
97.6 F 75 18 120/72 100
04/02/23 07:00 04/02/23 07:00 04/02/23 07:00 04/02/23 07:00 04/02/23 07:00
I&O
04/01/23 04/02/23 04/03/23
06:59 06:59 06:59
Intake Total 740 / 740 4260 / 4260
Balance 740 / 740 4260 / 4260
Review of Systems
-
Constitutional: Denies Fever
Respiratory: Denies Trouble Breathing
Cardiac: Denies Chest Pain
Abdomen/GI: Reports Diarrhea; Denies Abdominal Pain, Nausea or Vomiting
Neuro: Denies Dizzy
Physical Exam
-
General: No Apparent Distress
HEENT: Moist Mucous Membranes
Respiratory: Clear to Auscultation
Cardiac: Regular Rhythm and S1/S2
GI: Soft and Nontender
Neuro: AO x 3 and No Motor Deficits
Psych: Calm; Negative Confused
Data Reviewed
-
MRI: Report Reviewed by me (MRI L spine)
Labs: Labs Reviewed by me
--- NOTE | 2023-04-02 15:07 | CM ---
Discharge Plan of Care: Accepted to [facility]. No bed today. Possibly Wednesday. Contact: Jordyn [phone] (P) and [phone] (F). Daughter aware.
[2023-04-02 16:50] LABS: Glucose - Point of Care 134 mg/dl (70-99)
[2023-04-02] MEDS: ULTRAM 50 MG PO (17:47)
[2023-04-02] MEDS: TYLENOL 650 MG PO (18:44)
[2023-04-02] MEDS: LIPITOR 40 MG PO (21:47)
[2023-04-02 22:29] LABS: Glucose - Point of Care 179 mg/dl (70-99)
[2023-04-02 23:00] VITALS: BP 143/79
[2023-04-03 06:00] VITALS: BMI 31.3
[2023-04-03 07:30] VITALS: BP 137/78
[2023-04-03 07:59] LABS: Glucose - Point of Care 133 mg/dl (70-99)
[2023-04-03] MEDS: FLORASTOR 250 MG PO (08:04)
[2023-04-03] MEDS: ENTOCORT EC 9 MG PO (08:04)
[2023-04-03] MEDS: PROTONIX 40 MG PO (08:04)
[2023-04-03] MEDS: NOVOLOG FLEXPEN-LOW RESISTANCE SC (08:04)
[2023-04-03] MEDS: GLUCOTROL 5 MG PO (08:04)
[2023-04-03] MEDS: TYLENOL 650 MG PO (08:04)
[2023-04-03 11:10] LABS: Hematocrit 30.1 % (37.0-47.0); Mean Corp Hgb Conc. 33.2 g/dL (33.0-37.0); Mean Corpuscular Hgb 29.5 pg (27.0-31.0); Mean Corpuscular Volume 88.8 fL (81.0-99.0); Mean Platelet Volume 11.4 fL (7.4-10.4); Platelet Count 300 10^3/uL (130-400); Red Blood Cell Count 3.39 10^6/uL (4.20-5.40); Red Cell Dist. Width 15.5 % (11.5-14.5); White Blood Cell Count 10.5 10^3/uL (4.8-10.8)
[2023-04-03 11:25] LABS: Blood Urea Nitrogen 15 mg/dl (7-17); Calcium 8.3 mg/dl (8.4-10.2); Carbon Dioxide 22 mmol/L (22-30); Chloride 111 mmol/L (98-107); Estimated Creatinine Clearance 46 ml/min; Glucose 246 mg/dl (70-99); Potassium 4.1 mmol/L (3.5-5.1); Sodium 138 mmol/L (135-145); eGFR > 60.00
--- NOTE | 2023-04-03 11:27 | W.PN.HOSP.TC ---
Today's Communication/Plan
-
Switch to IV Toradol
Continue with PT
Imodium as needed
If able to function with the PT with adequate pain control will discharge to rehab and if intractable then arrange for an epidural injection.
Assessment / Plan
Assessment / Plan
Subacute right lower back pain which got worse-her presenting complaint-she has some sciatica to the right side posteriorly in the thigh about the knee. There is no foot weakness. SLR seems to be positive. Worried about disc disease. Plain x-ray
shows no fracture in the lumbar vertebra.
MRI L spine shows-
1. 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
2. � MODERATE-SIZED RIGHT FORAMINAL DISC EXTRUSION at L4/L5 causing severe right neural foraminal narrowing and exiting right L4 nerve root impingement.
3. � Severe right neural foraminal narrowing at L3/L4 with exiting right L3 nerve root impingement caused by severe right-sided facet joint arthrosis. Moderate-sized left central disc herniation at L3/L4.
4. � 8.3 mm grade 2 anterolisthesis of L5 on S1 secondary to very severe bilateral facet joint arthrosis. Mild central canal stenosis and moderate to severe bilateral neural foraminal narrowing with exiting L5 nerve root impingement at L5/S1.
5. 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
6. � Severe diffuse posterior paraspinal muscle atrophy.
.Continue Tylenol , pt says pain recurrs once pain med wears off . She hasnt taken much pain meds. Daughter says she does not tolerate tramadol much due to confusion. Changed to Toradol for now.
L spine shows severe disease -discussed with IR for role of epidural injection to L4/L5 region for rt L4 nerve root impingement. Could do it on Wednesday if still in pain. Patient advised to continue to use pain medication and work with PT and if
intractable then will schedule it for Wednesday.
CW PT
Chronic to subacute diarrhea-patient was here couple of years ago had a colonoscopy and endoscopy. Last known pathology of the colonic biopsy shows elevated eosinophils but not sure if its meets criteria for eosinophilic colitis. Check stools for
blood because of subjective complaint of black stools. 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
Leukocytosis-patient currently with back pain and GI symptoms. Afebrile. UA nondiagnostic. No respiratory or symptoms. She does have mild tenderness in the left lower quadrant. She also had a nausea and multiple episodes of vomiting
yesterday. CT of the abdomen pelvis shows no acute pathology.Normalized without tx . Follow off of abx for now
Black stools-subjective symptoms. Hemoglobin lower than baseline but stable. Continue to follow. Brown stools noted.
Hyperkalemia-current in the recent past as well-patient on losartan which and when to hold. May not be a candidate for losartan. Consider an alternative. Currently blood pressure under goal.
Diabetes mellitus type 2-resume metformin-continue with glipizide and sliding scale insulin.
Full code
Discussed with daughter.
Anticipated Discharge: 24 - 48 hours
Subjective/Interval History
-
Date of Service: April 03, 2023
Complains of continued back pain limiting mobility. She has not used much of tramadol and according to daughter she does not do well with tramadol.
She also has loose stools and requesting Imodium which she normally takes at home.
Objective Data
-
Labs:
Laboratory Results
04/03/23
11:02
WBC 10.5
Hgb 10.0 L
Hct 30.1 L
Plt Count 300
Sodium 138
Potassium 4.1
Chloride 111 H
Carbon Dioxide 22
BUN 15
Creatinine 0.9
Glucose 246 H
Calcium 8.3 L
Vital Signs:
Vital Signs
Temp Pulse Resp BP Pulse Ox
97.4 F 84 16 137/78 95
04/03/23 07:30 04/03/23 07:30 04/03/23 07:30 04/03/23 07:30 04/03/23 07:30
I&O
04/02/23 04/03/23 04/04/23
06:59 06:59 06:59
Intake Total 4260 / 4260 1200 / 1200
Balance 4260 / 4260 1200 / 1200
Review of Systems
-
Constitutional: Denies Fever
EENT: Denies Sore Throat
Respiratory: Denies Trouble Breathing
Cardiac: Denies Chest Pain
Abdomen/GI: Denies Abdominal Pain, Nausea or Vomiting
Neuro: Denies Dizzy
Physical Exam
-
General: No Apparent Distress
HEENT: Moist Mucous Membranes
Respiratory: Clear to Auscultation
Cardiac: Regular Rhythm and S1/S2
Neuro: AO x 3 and No Motor Deficits
Psych: Calm
Data Reviewed
-
Labs: Labs Reviewed by me
--- NOTE | 2023-04-03 11:34 | W.PN.GI.CBS2 ---
Addendum entered and electronically signed by Raven Cantor DO 04/03/23 13:56:
Patient seen and examined independently of DEMARIO. I agree with her note with my additions below
No bowel movements have been charted from today with last bowel movement questionable yesterday. Patient still complaining of back pain.
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
Budesonide 9 mg once daily for 2 months, then 6 mg for 2 weeks then 3 mg for 2 weeks then stop.
She will need GI follow-up with either Dr. Lawrence here or in [place] where she would likely be going with her daughter
Monitor glucose
Okay to take intermittent Imodium if needed
GI will sign off. Please call back with any questions.
Original Note:
Today's Communication / Plan
-
started on budesonide 9 mg once daily 04/02 -- minimal change today with stools cont to monitor
on discharge would need taper 9 mg for 2 month, then 6 mg x 2 weeks then 3 mg x 2 weeks if improving
reviewed with daughter plan is likely SNF on discharge in [place] so not sure if will need to check coverage for medication
follow-up with Dr. Lawrence in the office-- message sent to office to schedule vs GI in [place] where family trying to relocate pt to for rehab
cont Advance diet to 1500 ju[address] mig[address] ADA/low residue diet will add low lactose to diet also
stool studies including salmonella, Campylobacter, c-diff neg, ecoli pending
-Continue PPI
-Continue Florastor
-With pancreatic atrophy prior pancreatic elastase in 2020 358 normal range repeat pending
-imodium PRN
-work up for back pain per hospitalist team with DDD
Assessment / Plan
-
88yo presents with hx of GERD, right sided back pain for 2 months, UTI recently treated with Augmentin, chronic diarrhea, worked up in the past and was negative and intermittent dysphagia with prior dilatation without any current complaints of such
comes to the ER with worsening right sided back pain. She also states that she had multiple episodes of vomiting yesterday(7 times) followed by diarrhea. The patient states that she has been having solid stools as well as 'mushy' stools in between
for the past 2 months up until yesterday when she has multiple episodes.
Impression:
Chronic changes in stools (alternating in solid and mushy) since in ability to ambulate --with acute on chronic diarrhea and concern for exacerbation of eosinophilic colitis vs exacerbated with recent abx
N/V/D x 24 hrs -> resolved
-recent UTI with abx and steroid use for back pain
right back pain-> per IM severe DDD on imaging,
-hx IBS
Plan:
started on budesonide 9 mg once daily 04/02 -- minimal change today with stools cont to monitor
on discharge would need taper 9 mg for 2 month, then 6 mg x 2 weeks then 3 mg x 2 weeks if improving
reviewed with daughter plan is likely SNF on discharge in [place] so not sure if will need to check coverage for medication
follow-up with Dr. Lawrence in the office-- message sent to office to schedule vs GI in [place] where family trying to relocate pt to for rehab
cont Advance diet to 1500 [address] ADA/low residue diet will add low lactose to diet also
stool studies including salmonella, Campylobacter, c-diff neg, ecoli pending
-Continue PPI
-Continue Florastor
-With pancreatic atrophy prior pancreatic elastase in 2020 358 normal range repeat pending
-imodium PRN
-work up for back pain per hospitalist team with DDD
Subjective
Subjective
Date of Service: April 03, 2023
04/02 green/brown formed stool, on 1800 ADA diet still with complaints of back pain and formed but frequent stools
Objective
Data Reviewed
Laboratory Data:
Laboratory Results
04/03/23 11:02
04/03/23 11:02
Laboratory Results
Magnesium 1.1 mg/dl (1.6-2.3) L 03/31/23 18:44
Total Bilirubin 0.4 mg/dl (0.2-1.3) 03/31/23 18:44
AST 27 U/L (14-36) 03/31/23 18:44
ALT 17 U/L (0-35) 03/31/23 18:44
Alkaline Phosphatase 112 U/L (38-126) 03/31/23 18:44
Vital Signs and I&O:
Vital Signs
Temp Pulse Resp BP Pulse Ox
97.4 F 84 16 137/78 95
04/03/23 07:30 04/03/23 07:30 04/03/23 07:30 04/03/23 07:30 04/03/23 07:30
I&O
04/02/23 04/03/23 04/04/23
06:59 06:59 06:59
Intake Total 4260 / 4260 1200 / 1200
Balance 4260 / 4260 1200 / 1200
Physical Exam
Physical Exam
HEENT: Anicteric and Moist mucous membranes
Cardiology: Normal Sinus Rhythm
Pulmonary: Clear
GI: Soft, Non Distended and Non Tender
Extremities: No Edema and Other (slow mobility with back pain)
Neuro: Other
[2023-04-03 12:40] LABS: Glucose - Point of Care 280 mg/dl (70-99)
[2023-04-03] MEDS: TORADOL 15 MG IV ×2 (12:50→19:40)
[2023-04-03] MEDS: NOVOLOG FLEXPEN-LOW RESISTANCE 3 UNITS SC (12:50)
[2023-04-03 16:14] VITALS: BP 93/59
[2023-04-03 16:53] LABS: Glucose - Point of Care 204 mg/dl (70-99)
[2023-04-03] MEDS: NOVOLOG FLEXPEN-LOW RESISTANCE 300 UNITS SC (17:13)
[2023-04-03] MEDS: GLUCOPHAGE XR EXTENDED RELEASE 500 MG PO (17:13)
[2023-04-03] MEDS: VALIUM 2 MG PO (19:40)
[2023-04-03] MEDS: LIPITOR 40 MG PO (19:41)
[2023-04-03 22:08] LABS: Glucose - Point of Care 123 mg/dl (70-99)
[2023-04-04 00:15] VITALS: BP 110/46
[2023-04-04] MEDS: TYLENOL 650 MG PO ×2 (05:45→21:35)
[2023-04-04 05:48] VITALS: BMI 31.8
[2023-04-04 07:00] VITALS: BP 103/52
[2023-04-04] MEDS: NOVOLOG FLEXPEN-LOW RESISTANCE SC ×2 (08:31→12:40)
[2023-04-04 08:32] LABS: Glucose - Point of Care 112 mg/dl (70-99)
[2023-04-04] MEDS: GLUCOTROL 5 MG PO (08:32)
[2023-04-04] MEDS: ENTOCORT EC 9 MG PO (08:32)
[2023-04-04] MEDS: PROTONIX 40 MG PO (08:32)
[2023-04-04] MEDS: FLORASTOR 250 MG PO (08:38)
[2023-04-04] MEDS: GLUCOPHAGE XR EXTENDED RELEASE 500 MG PO ×2 (08:38→18:16)
[2023-04-04 12:26] LABS: Glucose - Point of Care 98 mg/dl (70-99)
--- NOTE | 2023-04-04 12:34 | W.PN.HOSP.TC ---
Today's Communication/Plan
-
IR consult
cw current tx
Assessment / Plan
Assessment / Plan
Subacute right lower back pain which got worse-her presenting complaint-she has some sciatica to the right side posteriorly in the thigh about the knee. There is no foot weakness. SLR seems to be positive. Worried about disc disease. Plain x-ray
shows no fracture in the lumbar vertebra.
MRI L spine shows-
1. 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
2. � MODERATE-SIZED RIGHT FORAMINAL DISC EXTRUSION at L4/L5 causing severe right neural foraminal narrowing and exiting right L4 nerve root impingement.
3. � Severe right neural foraminal narrowing at L3/L4 with exiting right L3 nerve root impingement caused by severe right-sided facet joint arthrosis. Moderate-sized left central disc herniation at L3/L4.
4. � 8.3 mm grade 2 anterolisthesis of L5 on S1 secondary to very severe bilateral facet joint arthrosis. Mild central canal stenosis and moderate to severe bilateral neural foraminal narrowing with exiting L5 nerve root impingement at L5/S1.
5. 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
6. � Severe diffuse posterior paraspinal muscle atrophy.
.Continue Tylenol , pt says pain recurrs once pain med wears off . On Toradol now.
L spine shows severe disease - IR consulted for role of epidural injection to L4/L5 region for rt L4 nerve root impingement.
CW PT
Chronic to subacute diarrhea-patient was here couple of years ago had a colonoscopy and endoscopy. Last known pathology of the colonic biopsy shows elevated eosinophils but not sure if its meets criteria for eosinophilic colitis. Check stools for
blood because of subjective complaint of black stools. 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
Leukocytosis-patient currently with back pain and GI symptoms. Afebrile. UA nondiagnostic. No respiratory or symptoms. She does have mild tenderness in the left lower quadrant. She also had a nausea and multiple episodes of vomiting
yesterday. CT of the abdomen pelvis shows no acute pathology.Normalized without tx . Follow off of abx for now
Black stools-subjective symptoms. Hemoglobin lower than baseline but stable. Continue to follow. Brown stools noted.
Hyperkalemia-current in the recent past as well-patient on losartan which and when to hold. May not be a candidate for losartan. Consider an alternative. Currently blood pressure under goal.
Diabetes mellitus type 2-resume metformin-continue with glipizide and sliding scale insulin.
Full code
Anticipated Discharge: Within 24 hours
Subjective/Interval History
-
Date of Service: April 04, 2023
Continues to be in pain which is severe for her.
She is not able to sleep on the right side. She has to sleep on the left and when she tries to move to the right she has severe back pain still radiating to leg before. She is also having difficulty in getting out of the bed to the bathroom. She
is taking Toradol but once it wears off she is getting the pain back again. No fever or chills.
Objective Data
-
Vital Signs:
Vital Signs
Temp Pulse Resp BP Pulse Ox
97.5 F 74 16 103/52 96
04/04/23 07:00 04/04/23 07:00 04/04/23 07:00 04/04/23 07:00 04/04/23 07:00
I&O
04/03/23 04/04/23 04/05/23
06:59 06:59 06:59
Intake Total 1200 / 1200 1140 / 1140 240 / 240
Balance 1200 / 1200 1140 / 1140 240 / 240
Review of Systems
-
Respiratory: Denies Trouble Breathing
Cardiac: Denies Chest Pain
Abdomen/GI: Denies Abdominal Pain, Nausea, Vomiting or Diarrhea
Neuro: Denies Dizzy
Physical Exam
-
General: No Apparent Distress
HEENT: Moist Mucous Membranes
Respiratory: Clear to Auscultation
Cardiac: Regular Rhythm and S1/S2
GI: Soft
Neuro: AO x 3 and No Motor Deficits
Psych: Calm; Negative Confused
[2023-04-04] MEDS: TORADOL 15 MG IV (14:11)
[2023-04-04 15:00] VITALS: BP 130/54
[2023-04-04 16:00] VITALS: BP 130/54; PULSE 80; O2SAT 98
--- NOTE | 2023-04-04 16:07 | CM ---
IMM signed and placed on chart.
[2023-04-04 17:16] LABS: Glucose - Point of Care 161 mg/dl (70-99)
[2023-04-04] MEDS: NOVOLOG FLEXPEN-LOW RESISTANCE 1 UNITS SC (18:16)
[2023-04-04 21:16] LABS: Glucose - Point of Care 193 mg/dl (70-99)
[2023-04-04] MEDS: LIPITOR 40 MG PO (21:35)
[2023-04-04 23:01] VITALS: BP 129/59
[2023-04-05] MEDS: TORADOL 15 MG IV ×3 (02:08→20:40)
[2023-04-05 06:00] VITALS: BMI 31.8
[2023-04-05 07:00] VITALS: BP 116/44
[2023-04-05 07:08] LABS: Glucose - Point of Care 118 mg/dl (70-99)
[2023-04-05] MEDS: NOVOLOG FLEXPEN-LOW RESISTANCE SC ×2 (07:10→12:14)
[2023-04-05] MEDS: ENTOCORT EC 9 MG PO (07:57)
[2023-04-05] MEDS: GLUCOPHAGE XR EXTENDED RELEASE 500 MG PO ×2 (07:57→16:20)
[2023-04-05] MEDS: GLUCOTROL 5 MG PO (07:57)
[2023-04-05] MEDS: PROTONIX 40 MG PO (07:57)
[2023-04-05] MEDS: FLORASTOR 250 MG PO (07:57)
[2023-04-05 08:13] LABS: INR 0.92; PT 12.2 Sec (11.4-14.6)
[2023-04-05 12:11] LABS: Glucose - Point of Care 64 mg/dl (70-99)
[2023-04-05 12:31] LABS: Glucose - Point of Care 67 mg/dl (70-99)
[2023-04-05 12:50] LABS: Glucose - Point of Care 83 mg/dl (70-99)
--- NOTE | 2023-04-05 14:12 | CM ---
Patient seen at bedside with physician. CM also spoke to SNF; [phone] and awaiting response clarification on bed availability. CM updated patient daughter, Lata with update. CM will continue to follow for discharge planning needs.
Plan; [facility] will need auth from insurance
--- NOTE | 2023-04-05 14:14 | W.PN.HOSP.TC ---
Today's Communication/Plan
-
epidural
d/c planning
Assessment / Plan
Assessment / Plan
pt is an 88 year old female
Subacute right lower back pain which got worse--her presenting complaint--she has some sciatica to the right side posteriorly in the thigh about the knee. There is no foot weakness. SLR seems to be positive. Worried about disc disease. Plain
x-ray shows no fracture in the lumbar vertebra--MRI L spine shows-1. 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 2. � MODERATE-SIZED RIGHT FORAMINAL DISC EXTRUSION at L4/L5 causing severe right neural foraminal
narrowing and exiting right L4 nerve root impingement. 3. � Severe right neural foraminal narrowing at L3/L4 with exiting right L3 nerve root impingement caused by severe right-sided facet joint arthrosis. Moderate-sized left central disc herniation
at L3/L4. 4. � 8.3 mm grade 2 anterolisthesis of L5 on S1 secondary to very severe bilateral facet joint arthrosis. Mild central canal stenosis and moderate to severe bilateral neural foraminal narrowing with exiting L5 nerve root impingement at
L5/S1. 5. Moderate to severe left convex curvature of the midlumbar spine 6. Severe diffuse posterior paraspinal muscle atrophy--IR consulted for role of epidural injection to L4/L5 region for rt L4 nerve root impingement.
Chronic to subacute diarrhea--patient was here couple of years ago had a colonoscopy and endoscopy. Last known pathology of the colonic biopsy shows elevated eosinophils but not sure if its meets criteria for eosinophilic coliti-- Check stools for
blood because of subjective complaint of black stools-- GI suspect eosinophilic colitis - recommends Budesonide ( it was prescribed before but she is taking taking it nor following GI)
Leukocytosis--patient currently with back pain and GI symptoms. Afebrile. UA nondiagnostic. No respiratory or symptoms. She does have mild tenderness in the left lower quadrant. She also had a nausea and multiple episodes of vomiting
yesterday. CT of the abdomen pelvis shows no acute pathology. Normalized without tx . Follow off of abx for now
Black stools--subjective symptoms. Hemoglobin lower than baseline but stable. Continue to follow. Brown stools noted.
Hyperkalemia--current in the recent past as well--patient on losartan which and when to hold. May not be a candidate for losartan. Consider an alternative. Currently blood pressure under goal.
Diabetes mellitus type 2-resume metformin--continue with glipizide and sliding scale insulin.
Full code
Anticipated Discharge: 24 - 48 hours
Subjective/Interval History
-
Date of Service: April 05, 2023
pt waiting for epidural
Objective Data
-
Labs:
Laboratory Results
04/05/23
07:54
PT 12.2
INR 0.92
Vital Signs:
max temp for 24 hours
04/04/23
15:00
Temp 98.7 F
Vital Signs
Temp Pulse Resp BP Pulse Ox
98 F 66 16 116/44 96
04/05/23 07:00 04/05/23 07:00 04/05/23 07:00 04/05/23 07:00 04/05/23 09:40
I&O
04/04/23 04/05/23 04/06/23
06:59 06:59 06:59
Intake Total 1140 / 1140 780 / 780
Balance 1140 / 1140 780 / 780
Review of Systems
-
All other systems: Reviewed and negative
Physical Exam
-
General: Well Developed, Well Nourished and No Apparent Distress
HEENT: Normocephalic and Atraumatic
Respiratory: Clear to Auscultation; Negative Wheezes or Rhonchi
Cardiac: Regular Rhythm; Negative Murmur
GI: Soft, Nontender, Nondistended and Normal Bowel Sounds
Musculoskeletal: No Clubbing, No Cyanosis and No Edema
Neuro: Awake
[2023-04-05 14:48] LABS: Glucose - Point of Care 214 mg/dl (70-99)
[2023-04-05 15:00] VITALS: BP 138/74
--- NOTE | 2023-04-05 15:32 | PTCARENOTE ---
Patient complaining of blood when wiping after bowel movement, unwitnessed by this RN. MD made aware, no new orders at this time. Patient states no concerns, mild back pain with improvement after PRN IV toradol. Patient to IR for epidural this
afternoon.
[2023-04-05] MEDS: IMODIUM 2 MG PO (16:36)
[2023-04-05 16:40] LABS: Glucose - Point of Care 187 mg/dl (70-99)
[2023-04-05] MEDS: NOVOLOG FLEXPEN-LOW RESISTANCE 1 UNITS SC (16:40)
[2023-04-05] MEDS: LIPITOR 40 MG PO (20:40)
[2023-04-05 21:34] LABS: Glucose - Point of Care 108 mg/dl (70-99)
[2023-04-05 23:21] VITALS: BP 134/67
[2023-04-06 02:59] LABS: Glucose - Point of Care 138 mg/dl (70-99)
[2023-04-06] MEDS: TYLENOL 650 MG PO ×2 (03:11→21:30)
[2023-04-06 04:55] LABS: Hematocrit 29.7 % (37.0-47.0); Hemoglobin 9.8 g/dL (12.0-16.0); Mean Corpuscular Hgb 28.9 pg (27.0-31.0); Mean Corpuscular Volume 87.6 fL (81.0-99.0); Mean Platelet Volume 11.5 fL (7.4-10.4); Platelet Count 296 10^3/uL (130-400); Red Blood Cell Count 3.39 10^6/uL (4.20-5.40); Red Cell Dist. Width 15.3 % (11.5-14.5); White Blood Cell Count 12.1 10^3/uL (4.8-10.8)
[2023-04-06 05:15] VITALS: BMI 31.4
[2023-04-06 05:17] LABS: Blood Urea Nitrogen 22 mg/dl (7-17); Calcium 8.5 mg/dl (8.4-10.2); Carbon Dioxide 25 mmol/L (22-30); Chloride 106 mmol/L (98-107); Estimated Creatinine Clearance 46 ml/min; Glucose 119 mg/dl (70-99); Magnesium 1.3 mg/dl (1.6-2.3); Potassium 4.2 mmol/L (3.5-5.1); Sodium 137 mmol/L (135-145); eGFR > 60.00
[2023-04-06 06:00] VITALS: BMI 31.4
[2023-04-06 07:20] LABS: Glucose - Point of Care 108 mg/dl (70-99)
[2023-04-06] MEDS: NOVOLOG FLEXPEN-LOW RESISTANCE SC ×2 (07:24→11:31)
[2023-04-06] MEDS: MAGNESIUM SULFATE 100 IV (07:52)
[2023-04-06] MEDS: ENTOCORT EC 9 MG PO (07:57)
[2023-04-06] MEDS: FLORASTOR 250 MG PO (07:57)
[2023-04-06] MEDS: GLUCOTROL 5 MG PO (07:57)
[2023-04-06] MEDS: GLUCOPHAGE XR EXTENDED RELEASE 500 MG PO ×2 (07:57→17:42)
[2023-04-06] MEDS: PROTONIX 40 MG PO (07:57)
[2023-04-06 08:13] VITALS: BP 154/71
[2023-04-06 11:26] LABS: Glucose - Point of Care 146 mg/dl (70-99)
--- NOTE | 2023-04-06 15:06 | CM ---
Patient seen at bedside, waiting for procedure. Patient daughter aware and continues to want patient to go to SNF. CM will continue to follow for discharge planning needs.
Plan; SNF
[2023-04-06 15:44] VITALS: BP 126/62
--- NOTE | 2023-04-06 15:50 | W.PN.HOSP.TC ---
Today's Communication/Plan
-
await epidural
Assessment / Plan
Assessment / Plan
pt is an 88 year old female
Subacute right lower back pain which got worse--her presenting complaint--she has some sciatica to the right side posteriorly in the thigh about the knee. There is no foot weakness. SLR seems to be positive. Worried about disc disease. Plain
x-ray shows no fracture in the lumbar vertebra--MRI L spine shows SEVERE MULTILEVEL DISCOGENIC DEGENERATIVE DISEASE, MODERATE-SIZED RIGHT FORAMINAL DISC EXTRUSION, Moderate-sized left central disc herniation--IR consulted for epidural injection to
L4/L5 region for rt L4 nerve root impingement.
Chronic to subacute diarrhea--patient was here couple of years ago had a colonoscopy and endoscopy. Last known pathology of the colonic biopsy shows elevated eosinophils but not sure if its meets criteria for eosinophilic coliti-- Check stools for
blood because of subjective complaint of black stools-- GI suspect eosinophilic colitis - recommends Budesonide ( it was prescribed before but she is taking taking it nor following GI)
Leukocytosis--patient currently with back pain and GI symptoms. Afebrile. UA nondiagnostic. No respiratory or symptoms. She does have mild tenderness in the left lower quadrant. She also had a nausea and multiple episodes of vomiting
yesterday. CT of the abdomen pelvis shows no acute pathology. Normalized without tx . Follow off of abx for now
Black stools--subjective symptoms. Hemoglobin lower than baseline but stable. Continue to follow. Brown stools noted.
Hyperkalemia--current in the recent past as well--patient on losartan which and when to hold. May not be a candidate for losartan. Consider an alternative. Currently blood pressure under goal.
Diabetes mellitus type 2-resume metformin--continue with glipizide and sliding scale insulin.
Full code
Anticipated Discharge: 24 - 48 hours
Subjective/Interval History
-
Date of Service: April 06, 2023
pt waiting for epidural
Objective Data
-
Labs:
Laboratory Results
02/27/24
04:32
WBC 12.1 H
Hgb 9.8 L
Hct 29.7 L
Plt Count 296
Sodium 137
Potassium 4.2
Chloride 106
Carbon Dioxide 25
BUN 22 H
Creatinine 0.9
Glucose 119 H
Calcium 8.5
Vital Signs:
max temp for 24 hours
04/05/23
23:21
Temp 98.7 F
Vital Signs
Temp Pulse Resp BP Pulse Ox
97.9 F 69 14 126/62 95
04/06/23 15:44 04/06/23 15:44 04/06/23 15:44 04/06/23 15:44 04/06/23 15:44
I&O
04/05/23 04/06/23 04/07/23
06:59 06:59 06:59
Intake Total 780 / 780 1720 / 1720
Balance 780 / 780 1720 / 1720
Review of Systems
-
All other systems: Reviewed and negative
Physical Exam
-
General: Well Developed, Well Nourished and No Apparent Distress
HEENT: Normocephalic and Atraumatic
Respiratory: Clear to Auscultation; Negative Wheezes or Rhonchi
Cardiac: Regular Rhythm and S1/S2; Negative Murmur
GI: Soft, Nontender, Nondistended and Normal Bowel Sounds
Musculoskeletal: No Clubbing, No Cyanosis and No Edema
Neuro: Awake
Psych: Calm
[2023-04-06 16:00] VITALS: BP 139/60; PULSE 99; O2SAT 10
[2023-04-06 17:03] LABS: Glucose - Point of Care 209 mg/dl (70-99)
[2023-04-06] MEDS: NOVOLOG FLEXPEN-LOW RESISTANCE 2 UNITS SC (17:41)
[2023-04-06] MEDS: TORADOL IV (17:43)
[2023-04-06] MEDS: TORADOL 15 MG IV (18:16)
[2023-04-06] MEDS: LIPITOR 40 MG PO (21:31)
[2023-04-06 22:04] LABS: Glucose - Point of Care 131 mg/dl (70-99)
[2023-04-06 23:28] VITALS: BP 141/69
[2023-04-07 05:04] LABS: Hematocrit 30.5 % (37.0-47.0); Hemoglobin 10.1 g/dL (12.0-16.0); Mean Corp Hgb Conc. 33.1 g/dL (33.0-37.0); Mean Corpuscular Hgb 29.4 pg (27.0-31.0); Mean Corpuscular Volume 88.7 fL (81.0-99.0); Mean Platelet Volume 11.9 fL (7.4-10.4); Platelet Count 303 10^3/uL (130-400); Red Blood Cell Count 3.44 10^6/uL (4.20-5.40); Red Cell Dist. Width 15.2 % (11.5-14.5); White Blood Cell Count 12.9 10^3/uL (4.8-10.8)
[2023-04-07 05:25] VITALS: BMI 31.4
[2023-04-07 05:30] LABS: Blood Urea Nitrogen 21 mg/dl (7-17); Calcium 8.6 mg/dl (8.4-10.2); Carbon Dioxide 25 mmol/L (22-30); Chloride 109 mmol/L (98-107); Estimated Creatinine Clearance 46 ml/min; Glucose 109 mg/dl (70-99); Magnesium 2.3 mg/dl (1.6-2.3); Potassium 4.3 mmol/L (3.5-5.1); Sodium 136 mmol/L (135-145); eGFR > 60.00
[2023-04-07] MEDS: TYLENOL 650 MG PO ×2 (05:41→21:18)
[2023-04-07 06:00] VITALS: BMI 31.4
[2023-04-07 07:05] VITALS: BP 146/60
[2023-04-07] MEDS: VALIUM 2 MG PO ×2 (08:04→15:09)
[2023-04-07] MEDS: GLUCOTROL 5 MG PO (08:05)
[2023-04-07] MEDS: PROTONIX 40 MG PO (08:05)
[2023-04-07] MEDS: TORADOL 15 MG IV (08:05)
[2023-04-07] MEDS: FLORASTOR 250 MG PO (08:05)
[2023-04-07] MEDS: ENTOCORT EC 9 MG PO (08:05)
[2023-04-07] MEDS: GLUCOPHAGE XR EXTENDED RELEASE 500 MG PO ×2 (08:05→18:00)
[2023-04-07 08:21] LABS: Glucose - Point of Care 107 mg/dl (70-99)
[2023-04-07] MEDS: NOVOLOG FLEXPEN-LOW RESISTANCE SC ×2 (08:24→12:30)
--- NOTE | 2023-04-07 10:10 | W.PN.UPDATE ---
Update Note
Progress Note Update
- Lumbar DANNI completed this morning at L3-4.
- Of note, patient complained of right back pain similar to discomfort she's been having for months while advancing needle through the paraspinal musculature, suggesting muscle spasm/strain as the etiology of her discomfort.
--- NOTE | 2023-04-07 11:41 | CM ---
Addendum entered by Stacey Garrison 04/07/23 16:07:
Akua from [employer] called back to CM. Patient auth approved [id number] starting -04/12/23. Malorie Hewitt to follow [email or web address] CM updated SNF and Alyssa indicated that she had a bed for patient tomorrow,
please call report to [phone]/fax [phone]. Facility is [address]. CM updated nursing and Underwriting Sales Representative notified patient daughter. CM will continue to follow for discharge planning needs.
Plan; SNF tomorrow; patient will need ambulance and forms will be provided to patient nursing
Original Note:
Patient had procedure today. plan is transfer to SNF, pending Insurance authorization. CM rocket propellant plant supervisor also updated patient daughters. CM pending PT/OT assessment for submission to insurance.
Plan; SNF pending auth and bed availability at preferred snf
[2023-04-07 12:32] LABS: Glucose - Point of Care 103 mg/dl (70-99)
[2023-04-07 13:17] VITALS: BP 171/84; PULSE 76; O2SAT 99
[2023-04-07] MEDS: TORADOL IV (15:09)
[2023-04-07 15:20] VITALS: BP 140/70
[2023-04-07 16:53] LABS: Glucose - Point of Care 192 mg/dl (70-99)
[2023-04-07] MEDS: NOVOLOG FLEXPEN-LOW RESISTANCE 1 UNITS SC (17:30)
--- NOTE | 2023-04-07 18:09 | W.PN.HOSP.TC ---
Today's Communication/Plan
-
d/c to SNF tomorrow
Assessment / Plan
Assessment / Plan
pt is an 88 year old female
Subacute right lower back pain which got worse--her presenting complaint--she has some sciatica to the right side posteriorly in the thigh about the knee. There is no foot weakness. SLR seems to be positive. Worried about disc disease. Plain
x-ray shows no fracture in the lumbar vertebra--MRI L spine shows SEVERE MULTILEVEL DISCOGENIC DEGENERATIVE DISEASE, MODERATE-SIZED RIGHT FORAMINAL DISC EXTRUSION, Moderate-sized left central disc herniation--IR consulted for epidural injection to
L4/L5 region for rt L4 nerve root impingement--received epidural today 04/07
Chronic to subacute diarrhea--patient was here couple of years ago had a colonoscopy and endoscopy. Last known pathology of the colonic biopsy shows elevated eosinophils but not sure if its meets criteria for eosinophilic coliti-- Check stools for
blood because of subjective complaint of black stools-- GI suspect eosinophilic colitis - recommends Budesonide ( it was prescribed before but she is taking taking it nor following GI)
Leukocytosis--patient currently with back pain and GI symptoms. Afebrile. UA nondiagnostic. No respiratory or symptoms. She does have mild tenderness in the left lower quadrant. She also had a nausea and multiple episodes of vomiting
yesterday. CT of the abdomen pelvis shows no acute pathology. Normalized without tx . Follow off of abx for now
Black stools--subjective symptoms. Hemoglobin lower than baseline but stable. Continue to follow. Brown stools noted.
Hyperkalemia--current in the recent past as well--patient on losartan which and when to hold. May not be a candidate for losartan. Consider an alternative. Currently blood pressure under goal.
Diabetes mellitus type 2-resume metformin--continue with glipizide and sliding scale insulin.
Full code
Anticipated Discharge: Within 24 hours
Subjective/Interval History
-
Date of Service: April 07, 2023
pt s/p epidural
Objective Data
-
Vital Signs:
max temp for 24 hours
04/06/23
23:28
Temp 98.7 F
Vital Signs
Temp Pulse Resp BP Pulse Ox
97.6 F 77 18 140/70 98
04/07/23 15:20 04/07/23 15:20 04/07/23 15:20 04/07/23 15:20 04/07/23 15:20
I&O
04/06/23 04/07/23 04/08/23
06:59 06:59 06:59
Intake Total 1720 / 1720 820 / 820 960 / 960
Balance 1720 / 1720 820 / 820 960 / 960
Review of Systems
-
All other systems: Reviewed and negative
Physical Exam
-
General: Well Developed, Well Nourished and No Apparent Distress
HEENT: Normocephalic and Atraumatic; Negative Oxygen
Respiratory: Clear to Auscultation; Negative Wheezes or Rhonchi
Cardiac: Regular Rhythm and S1/S2; Negative Murmur
GI: Soft, Nontender, Nondistended and Normal Bowel Sounds
Musculoskeletal: No Clubbing, No Cyanosis and No Edema
Neuro: Awake and Alert
Psych: Calm
[2023-04-07] MEDS: LIPITOR 40 MG PO (21:12)
[2023-04-07 22:08] LABS: Glucose - Point of Care 120 mg/dl (70-99)
[2023-04-07 23:24] VITALS: BP 138/72
[2023-04-08 05:43] VITALS: BMI 31.4
[2023-04-08 06:00] VITALS: BMI 31.4
[2023-04-08 06:09] LABS: Hematocrit 32.1 % (37.0-47.0); Hemoglobin 10.3 g/dL (12.0-16.0); Mean Corp Hgb Conc. 32.1 g/dL (33.0-37.0); Mean Corpuscular Hgb 28.6 pg (27.0-31.0); Mean Corpuscular Volume 89.2 fL (81.0-99.0); Mean Platelet Volume 11.9 fL (7.4-10.4); Platelet Count 310 10^3/uL (130-400); Red Cell Dist. Width 15.3 % (11.5-14.5); White Blood Cell Count 14.2 10^3/uL (4.8-10.8)
[2023-04-08 06:42] LABS: Blood Urea Nitrogen 24 mg/dl (7-17); Calcium 8.9 mg/dl (8.4-10.2); Carbon Dioxide 26 mmol/L (22-30); Chloride 109 mmol/L (98-107); Estimated Creatinine Clearance 46 ml/min; Glucose 119 mg/dl (70-99); Potassium 4.9 mmol/L (3.5-5.1); Sodium 137 mmol/L (135-145); eGFR > 60.00
[2023-04-08 07:00] VITALS: BP 149/82
[2023-04-08 07:47] LABS: Glucose - Point of Care 117 mg/dl (70-99)
[2023-04-08] MEDS: PROTONIX 40 MG PO (08:03)
[2023-04-08] MEDS: NOVOLOG FLEXPEN-LOW RESISTANCE SC (08:03)
[2023-04-08] MEDS: ENTOCORT EC 9 MG PO (08:03)
[2023-04-08] MEDS: GLUCOTROL 5 MG PO (08:03)
[2023-04-08] MEDS: GLUCOPHAGE XR EXTENDED RELEASE 500 MG PO (08:03)
[2023-04-08] MEDS: FLORASTOR 250 MG PO (08:03)
--- NOTE | 2023-04-08 08:37 | W.PN.HOSP.TC ---
Today's Communication/Plan
-
d/c
Assessment / Plan
Assessment / Plan
pt is an 88 year old female
Subacute right lower back pain which got worse--her presenting complaint--she has some sciatica to the right side posteriorly in the thigh about the knee. There is no foot weakness. SLR seems to be positive. Worried about disc disease. Plain
x-ray shows no fracture in the lumbar vertebra--MRI L spine shows SEVERE MULTILEVEL DISCOGENIC DEGENERATIVE DISEASE, MODERATE-SIZED RIGHT FORAMINAL DISC EXTRUSION, Moderate-sized left central disc herniation--IR consulted for epidural injection to
L4/L5 region for rt L4 nerve root impingement--received epidural today 04/07
Chronic to subacute diarrhea--patient was here couple of years ago had a colonoscopy and endoscopy. Last known pathology of the colonic biopsy shows elevated eosinophils but not sure if its meets criteria for eosinophilic coliti-- Check stools for
blood because of subjective complaint of black stools-- GI suspect eosinophilic colitis - recommends Budesonide ( it was prescribed before but she is taking taking it nor following GI)
Leukocytosis--patient currently with back pain and GI symptoms. Afebrile. UA nondiagnostic. No respiratory or symptoms. She does have mild tenderness in the left lower quadrant. She also had a nausea and multiple episodes of vomiting
yesterday. CT of the abdomen pelvis shows no acute pathology. Normalized without tx . Follow off of abx for now
Black stools--subjective symptoms. Hemoglobin lower than baseline but stable. Continue to follow. Brown stools noted.
Hyperkalemia--current in the recent past as well--patient on losartan which and when to hold. May not be a candidate for losartan. Consider an alternative. Currently blood pressure under goal.
Diabetes mellitus type 2-resume metformin--continue with glipizide and sliding scale insulin.
apparent dementia -- keeps asking me who I am (been seeing since Wednesday of this week)
Full code
Anticipated Discharge: Today
Subjective/Interval History
-
Date of Service: April 08, 2023
pt ready for d/c--denies pain--says shot worked
Objective Data
-
Labs:
Laboratory Results
04/08/23
05:22
WBC 14.2 H
Hgb 10.3 L
Hct 32.1 L
Plt Count 310
Sodium 137
Potassium 4.9
Chloride 109 H
Carbon Dioxide 26
BUN 24 H
Creatinine 0.9
Glucose 119 H
Calcium 8.9
Vital Signs:
max temp for 24 hours
04/07/23
23:24
Temp 97.9 F
Vital Signs
Temp Pulse Resp BP Pulse Ox
98 F 70 16 149/82 97
04/08/23 07:00 04/08/23 07:00 04/08/23 07:00 04/08/23 07:00 04/08/23 07:00
I&O
04/07/23 04/08/23 04/09/23
06:59 06:59 06:59
Intake Total 820 / 820 1440 / 1440
Balance 820 / 820 1440 / 1440
Review of Systems
-
All other systems: Reviewed and negative
Physical Exam
-
General: Well Developed, Well Nourished and No Apparent Distress
HEENT: Normocephalic and Atraumatic
Respiratory: Clear to Auscultation; Negative Wheezes or Rhonchi
Cardiac: Regular Rhythm and S1/S2; Negative Murmur
GI: Soft, Nontender, Nondistended and Normal Bowel Sounds
Musculoskeletal: No Clubbing, No Cyanosis and No Edema
Skin: Warm
Neuro: Awake
Psych: Calm and Apparent Dementia
--- NOTE | 2023-04-08 09:16 | PTCARENOTE ---
CALLED FOR REPORT AT multiple times, no answer and called Sussy by CM and LM to call back for report /ask for this nurse.
[2023-04-08] MEDS: IMODIUM 2 MG PO (09:24)
--- NOTE | 2023-04-08 09:51 | CM ---
Call placed to Daughter, Meryl, to make her aware that the ambulance is picking her Mom up at 10am to bring her Mom to [facility].
--- NOTE | 2023-04-08 10:34 | PTCARENOTE ---
called to give report at X 2, no answer or not able to leave message.
--- NOTE | 2023-04-09 07:10 | W.DCSUMMARY ---
Discharge Summary
Discharge Data
Date of Admission: 03/31/23
Date of Discharge: 04/08/23
-
Pending Results: No
Hospital Course
Primary care physician : [facility], no specific provider mentioned
Principal Discharge diagnosis : Subacute right lower back pain
Chronic Discharge diagnosis : Chronic to subacute diarrhea, leukocytosis, hyperkalemia, type 2 diabetes mellitus, apparent dementia
Hospital Course : Patient was an 88-year-old female who is a poor historian and complained of right lower back pain for at least 2 months. It became worse on the day of admission and she felt like she had sharp shooting pains. She denied radiation
to the legs. She denied paresthesia or weakness. The pain however does affect her ambulatory function and she does use a walker. Patient was admitted.
Problem #1: Subacute right lower back pain. Patient was admitted and did have what appeared to be sciatic to the right side down the leg to about the knee. There did not appear to be foot weakness however her straight leg raise was positive. She
had a plain x-ray which did not show any fractures. MRI of the spine was done which showed severe multilevel discogenic degenerative disease and a moderately sized right foraminal disc extrusion. Interventional radiology was consulted for an
epidural. However, that had been delayed a few days due to busyness in the interventional radiology department. She eventually received her epidural on April 07. She was also seen in consultation by physical therapy and Occupational Therapy
who recommended custodial facility. She has been accepted to [place] and is stable for discharge at this time.
Problem #2: All other medical issues. These include Chronic to subacute diarrhea, leukocytosis, hyperkalemia, type 2 diabetes mellitus, apparent dementia. These medical issues were essentially stable during her hospitalization. Medications were
continued as able. In regards to her chronic to subacute diarrhea. 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 Patient was prescribed this before but did was not taking it nor
was she following with GI. This was restarted this admission. Leukocytosis was likely reactive. She had no respiratory or symptoms, there was no sign of any epidural abscess on MRI. CAT scan of the abdomen and pelvis also showed no acute
pathology and her white count normalized without any treatment.
Patient is stable for discharge to the custodial facility at this time. If there are any questions regarding this dictation or her hospital stay, please not hesitate to call. Our office number is [phone].
Time for discharge 32 minutes.
Important imaging findings :
LUMBAR SPINE MRI IMPRESSION:
1. 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
2. � MODERATE-SIZED RIGHT FORAMINAL DISC EXTRUSION at L4/L5 causing severe right neural foraminal narrowing and exiting right L4 nerve root impingement.
3. � Severe right neural foraminal narrowing at L3/L4 with exiting right L3 nerve root impingement caused by severe right-sided facet joint arthrosis. Moderate-sized left central disc herniation at L3/L4.
4. � 8.3 mm grade 2 anterolisthesis of L5 on S1 secondary to very severe bilateral facet joint arthrosis. Mild central canal stenosis and moderate to severe bilateral neural foraminal narrowing with exiting L5 nerve root impingement at L5/S1.
5. 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
6. � Severe diffuse posterior paraspinal muscle atrophy.
CT SCAN ABDOMEN/PELVIS IMPRESSION:
1. � No specific findings to explain left-sided pain. No acute intra-abdominal process identified.
2. � Mild hepatic fatty infiltration.
3. � Simple right adnexal cyst, most likely ovarian cyst, without significant change in 2020.
Procedure findings :
EPIDURAL IMPRESSION:
Technically successful lumbar spine epidural steroid injection.
Discharge Plan
-
Patient Disposition: Senior Living/SNF
Discharge Diagnosis/Procedures: Subacute right lower back pain, chronic to subacute diarrhea, leukocytosis, hyperkalemia, type 2 diabetes mellitus, apparent dementia
Condition: Fair
Diet: Diabetic, Carb Controlled
Activity: As tolerated
Driving Restrictions: No driving
Bathing Restrictions: None
Referrals:
UNKNOWN - PT DOES,NOT KNOW [Family Provider] - in less than 1 week
Prescriptions:
New
loperamide 2 mg Capsule
2 mg PO Q6HPRN PRN (Reason: diarrhea) Qty: 0 0RF
Saccharomyces boulardii 250 mg Capsule
250 mg PO DAILY Qty: 0 0RF
budesonide 3 mg Capsule,Delayed,Extend.Release
9 mg PO DAILY Qty: 0 0RF
Continued
losartan 50 MG tablet
50 mg PO DAILY
diazepam 2 MG tablet
2 mg PO BIDPRN PRN (Reason: anxiety) 0RF
Patient Comments:
03/31/2023: last filled 03/19/22, 60 tabs for 30 days from [id number]
omeprazole 40 mg capsule,delayed release(DR/EC)
40 mg PO DAILY
famotidine 20 mg tablet
20 mg PO HS PRN (Reason: heartburn)
metformin 500 mg tablet extended release 24 hr
500 mg PO BID
atorvastatin 40 mg tablet
40 mg PO HS
acetaminophen 500 mg Tablet
500 - 1,000 mg PO Q6H PRN (Reason: mild pain)
Held
glipizide 5 MG tablet
5 mg PO DAILY
Hold Instructions: sugars running a bit low--can restart if sugars trend up
Discontinued
ibuprofen 200 mg Capsule
400 mg PO Q6H PRN (Reason: mild pain)
Discharge Orders:
Discharge Patient (As Directed); Ordered 04/08/23
Ordered By: Daylin Real
Discharge Date and Time
Discharge Date/Time: 04/08/23 10:26
== END 2023-04-08 10:26 | DRG 552 ==
LOC: 2 NORTH 23:53
PROVIDERS: Emergency Medicine; Internal Medicine; Radiology Diagnostic Radiology; Radiology Vascular & Interventional Radiology; ADMITTING PHYSICIAN Internal Medicine; ATTENDING PHYSICIAN Internal Medicine; CONSULT PHYSICIAN Internal Medicine Gastroenterology; EMERGENCY PHYSICIAN Emergency Medicine
PROC: 3E0R33Z Introduction of Anti-inflammatory into Spinal Canal, Percutaneous Approach (ICD-10-PCS; 2023-04-07)
PROC: 3E0R3BZ Introduction of Anesthetic Agent into Spinal Canal, Percutaneous Approach (ICD-10-PCS; 2023-04-07)
DX: M51.26 Other intervertebral disc displacement, lumbar region (principal); F03.94 Unspecified dementia, unspecified severity, with anxiety; E87.1 Hypo-osmolality and hyponatremia; M47.816 Spondylosis without myelopathy or radiculopathy, lumbar region; I10 Essential (primary) hypertension; K52.82 Eosinophilic colitis; K21.9 Gastro-esophageal reflux disease without esophagitis; M54.31 Sciatica, right side; G89.29 Other chronic pain; R11.2 Nausea with vomiting, unspecified; E86.0 Dehydration; E78.00 Pure hypercholesterolemia, unspecified; I95.9 Hypotension, unspecified; K57.30 Diverticulosis of large intestine without perforation or abscess without bleeding; D72.829 Elevated white blood cell count, unspecified; E87.5 Hyperkalemia; K86.89 Other specified diseases of pancreas; M48.061 Spinal stenosis, lumbar region without neurogenic claudication; M62.50 Muscle wasting and atrophy, not elsewhere classified, unspecified site; E66.9 Obesity, unspecified; K76.0 Fatty (change of) liver, not elsewhere classified; E11.9 Type 2 diabetes mellitus without complications; M43.17 Spondylolisthesis, lumbosacral region; N39.3 Stress incontinence (female) (male); Z96.641 Presence of right artificial hip joint; Z88.6 Allergy status to analgesic agent; Z88.8 Allergy status to other drugs, medicaments and biological substances; Z79.84 Long term (current) use of oral hypoglycemic drugs; Z68.31 Body mass index [BMI] 31.0-31.9, adult; Z96.651 Presence of right artificial knee joint
CPT/HCPCS: 62323; 72148; 74019; 74177; 80048; 80053; 81003; 81015; 82728; 82962; 83036; 83540; 83550; 83735; 85025; 85027; 85610; 87045; 87046; 87324; 87427; 87449; 96374; 96375; 97116; 97162; 97166; 97530; 99284; Q9967